=== PATIENT | male | born 1945 ===

== ENCOUNTER 2016-10-26 21:01 | Emergency (ER) | payer MEDICARE ==
[2016-10-26 21:01] VITALS: BMI 38.2
[2016-10-26 21:08] VITALS: BP 156/74; PULSE 98; RESP 14; TEMP 98; O2SAT 96
--- NOTE | 2016-10-26 21:34 | ED PDOC ---
HPI: Abdomen Time Seen by Provider: 10/26/16 21:16 Chief Complaint (Nursing): Chest Pain Chief Complaint (Provider): RUQ/Epigastric Pain History Per: Patient (71M p/w continued RUQ/epigastric pain in a diaphragmatic distribution RUQ symptoms worse with radiation into RIGHT infrascapular. Pain is constant denies alleviating symptoms but worse with lying on RIGHT side and sneezing associated with mild nausea. Otherwise denies dizziness, headaches, fevers, chills, SOB, chest pain, vomiting, loss of appetite, diarrhea, dysuria.) Past Medical History Vital Signs: Last Vital Signs Temp 36.7 C 10/26/16 21:05 Pulse 98 H 10/26/16 21:05 Resp 14 10/26/16 21:05 BP 156/74 H 10/26/16 21:05 Pulse Ox 96 10/26/16 21:57 - Medical History PMH: Diabetes, HTN, Hypercholesterolemia - Surgical History Surgical History: Hernia Repair (x3) - Family History Family History: States: Unknown Family Hx - Home Medications Home Medications: Ambulatory Orders Medication Instructions Recorded Atorvastatin [Lipitor] 20 mg PO DAILY 10/15/16 Famotidine [Pepcid] 20 mg PO Q12 #20 tab 10/15/16 Lisinopril/Hydrochlorothiazide 1 tab PO DAILY 10/15/16 [Lisinopril-Hctz 20-12.5 mg Tab] amLODIPine [Norvasc] 5 mg PO DAILY 10/15/16 metFORMIN [glucOPHAGE] 500 mg PO DAILY 10/15/16 - Allergies Allergies/Adverse Reactions: Allergies Allergy/AdvReac Type Severity Reaction Status Date / Time No Known Allergies Allergy Verified 10/26/16 21:05 Review of Systems ROS Statement: Except As Marked, All Systems Reviewed And Found Negative Gastrointestinal: Positive for: Nausea (mild not interfering with meals), Abdominal Pain (as per HPI) Physical Exam - Physical Exam Appears: Positive for: Well, Non-toxic, No Acute Distress Head Exam: Positive for: ATRAUMATIC, NORMAL INSPECTION Skin: Positive for: Normal Color, Warm Eye Exam: Positive for: Normal appearance, EOMI, PERRL ENT: Positive for: Normal ENT Inspection, Pharynx Is (clear) Neck: Positive for: Supple Cardiovascular/Chest: Positive for: Regular Rate, Rhythm. Negative for: JVD, Murmur Respiratory: Positive for: Normal Breath Sounds. Negative for: Crackles, Rales , Wheezing Gastrointestinal/Abdominal: Positive for: Bowel Sounds, Soft, Tenderness (Lynn 's +) Back: Negative for: L CVA Tenderness, R CVA Tenderness, Vertebral Tenderness Extremity: Positive for: Capillary Refill. Negative for: Pedal Edema, Calf Tenderness, Swelling Lymphatic: Negative for: Adenopathy Neurologic/Psych: Positive for: Alert, Oriented. Negative for: Motor/Sensory Deficits - ECG ECG: Positive for: Interpreted By Me ECG Rhythm: Positive for: Normal QRS, Sinus Rhythm O2 Sat by Pulse Oximetry: 96 Medical Decision Making Medical Decision MakinM persistent RUQ/epigastric pain biliary colic vs. pancreatitis vs. gastritis vs. rt pneumonia vs nephrolithiasis. - EKG - CBC - CMP - Lipase - Accucheck - Urine Dip - ABD U/S
[2016-10-26 23:55] LABS: BASO # 0.1 K/uL (0.0-0.2); BASO % 0.7 % (0.0-2.0); EOS # 0.3 K/uL (0.0-0.7); EOS % 2.5 % (0.0-4.0); LYMPH # 1.6 K/uL (1.0-4.3); LYMPH % 15.1 % (20.0-40.0); MEAN CELL VOLUME 86.3 fl (80.0-94.0); MEAN CORPUSCULAR HEMOGLOBIN 28.3 pg (27.0-31.0); MEAN CORPUSCULAR HGB CONC 32.8 g/dL (33.0-37.0); MEAN PLATELET VOLUME 7.5 fl (7.2-11.7); MONO # 1.1 K/uL (0.0-0.8); MONO % 10.3 % (0.0-10.0); NEUT # 7.7 K/uL (1.8-7.0); NEUT % 71.4 % (50.0-75.0); NRBC % 0.1 % (0.0-0.0); WHITE BLOOD COUNT 10.8 K/uL (4.8-10.8)
[2016-10-27 00:07] LABS: ALKALINE PHOSPHATASE 133 U/L (38-126); ALT/SGPT 38 U/L (21-72); AST/SGOT 32 U/L (17-59); BILIRUBIN,TOTAL 0.4 mg/dl (0.2-1.3); BLOOD UREA NITROGEN 21 mg/dl (9-20); CALCIUM 8.8 mg/dL (8.4-10.2); CARBON DIOXIDE 22 mmol/L (22-30); CHLORIDE 103 mmol/L (98-107); GFR AFRICAN-AMERICAN > 60; GLUCOSE,RANDOM 144 mg/dL (75-110); LIPASE 118 U/L (23-300); POTASSIUM 3.8 MMOL/L (3.6-5.0); SODIUM 144 mmol/l (132-148); TOTAL PROTEIN 8.9 G/DL (6.3-8.2)
--- NOTE | 2016-10-27 00:12 | US ---
EXAM: US Abdomen Limited, Right Upper Quadrant. CLINICAL HISTORY: 71 years old, male; Pain; Abdominal pain; Epigastric; Additional info: Ruq radiate to infrascapular/epigastric pain TECHNIQUE: Real-time ultrasound of the right upper quadrant with image documentation. COMPARISON: No relevant prior studies available. FINDINGS: Limitations: Body habitus. Liver: Fatty infiltration. No mass. No intrahepatic ductal dilatation. Gallbladder: No gallstones. No wall thickening. No pericholecystic fluid. No sonographic Lynn's sign. Common bile duct: No dilatation. No stones. Pancreas: Unremarkable as visualized. Right kidney: Normal echogenicity. 3.0 x 3.6 x 3.2 cm anechoic lesion with thin septation. No hydronephrosis. IMPRESSION: 1. Hepatic steatosis. 2. Probable renal cyst. 3. Incidental/non-acute findings are described above.
--- NOTE | 2016-10-27 08:02 | CARD ---
APPROVED REPORT EKG Measurement Heart [id number] <Conclusion> Normal sinus rhythm Normal ECG
== END 2016-10-27 00:23 | disposition home or self-care (01) ==
LOC: H.ER 21:01
DX: R10.13 Epigastric pain (principal); N11.0 Nonobstructive reflux-associated chronic pyelonephritis; E11.9 Type 2 diabetes mellitus without complications

== ENCOUNTER 2017-01-03 11:33 | Emergency (ER) | payer MEDICARE ==
[2017-01-03 11:34] VITALS: BMI 38.2
--- NOTE | 2017-01-03 12:09 | ED PDOC ---
HPI: General Adult Time Seen by Provider: 01/03/17 11:53 Chief Complaint (Nursing): Lower Extremity Problem/Injury History Per: Patient Additional Complaint(s): Pt. states for the past 4-5 days he's had atraumatic L foot pain and swelling. Reports pain is localized to the top and side of the foot. States he's had similar pain 1 year ago and was evaluated by a body corporate manager and prescsribed "pills " and given therapy with good relief of symptoms. Denies trauma, fever, numbness , tingling, rash. Past Medical History Reviewed: Historical Data, Nursing Documentation, Vital Signs Vital Signs: Last Vital Signs Temp 98.3 F 01/03/17 11:50 Pulse 93 H 01/03/17 11:50 Resp 18 01/03/17 11:50 BP 143/84 01/03/17 11:50 Pulse Ox 98 01/03/17 12:11 - Medical History PMH: Diabetes, Gastritis, HTN, Hypercholesterolemia - Surgical History Surgical History: Hernia Repair (x3) - Family History Family History: States: No Known Family Hx - Home Medications Home Medications: Ambulatory Orders Medication Instructions Recorded Atorvastatin [Lipitor] 20 mg PO DAILY 10/15/16 Famotidine [Pepcid] 20 mg PO Q12 #20 tab 10/15/16 Lisinopril/Hydrochlorothiazide 1 tab PO DAILY 10/15/16 [Lisinopril-Hctz 20-12.5 mg Tab] amLODIPine [Norvasc] 5 mg PO DAILY 10/15/16 metFORMIN [glucOPHAGE] 500 mg PO DAILY 10/15/16 Dicyclomine [Bentyl] 20 mg PO Q12 PRN #20 tab 10/27/16 Colchicine 0.6 mg PO Q8 #15 capsule 01/03/17 - Allergies Allergies/Adverse Reactions: Allergies Allergy/AdvReac Type Severity Reaction Status Date / Time No Known Allergies Allergy Verified 01/03/17 11:50 Review of Systems ROS Statement: Except As Marked, All Systems Reviewed And Found Negative Musculoskeletal: Positive for: Foot Pain Physical Exam - Physical Exam Appears: Positive for: Well, Non-toxic, No Acute Distress Skin: Positive for: Normal Color, Warm. Negative for: Rash Cardiovascular/Chest: Positive for: Regular Rate, Rhythm Respiratory: Positive for: CNT, Normal Breath Sounds Extremity: Positive for: Other (L foot with moderate swelling and tenderness localized to dorsum and medial surface of foot without erythema or break in skin integrity). Negative for: Calf Tenderness (b/l) Neurologic/Psych: Positive for: Alert, Oriented - Laboratory Results Result Diagrams: 01/03/17 12:23 01/03/17 12:23 - ECG O2 Sat by Pulse Oximetry: 98 - Radiology X-Ray: Interpreted by Me (L foot x-ray) X-Ray Interpretation: No Acute Disease - Progress ED Course And Treament: Labs ordered. IV line established. Foot x-ray ordered. Pt. evaluated by podiatry who discussed case with Dr. Hurd and recommends colchicine x 5 days. Disposition - Clinical Impression Clinical Impression: Gout - Patient ED Disposition Is Patient to be Admitted: No - Disposition Referrals: Dada Shepard MD [Primary Care Provider] - Podiatry Clinic [Outside] Disposition: Routine/Home Disposition Time: 15:44 Condition: STABLE Prescriptions: Colchicine 0.6 mg PO Q8 #15 capsule Instructions: Gout (ED)
[2017-01-03 12:34] LABS: BASO # 0.1 K/uL (0.0-0.2); BASO % 0.7 % (0.0-2.0); EOS # 0.3 K/uL (0.0-0.7); EOS % 2.9 % (0.0-4.0); HEMATOCRIT 43.6 % (35.0-51.0); LYMPH # 1.6 K/uL (1.0-4.3); LYMPH % 14.6 % (20.0-40.0); MEAN CELL VOLUME 84.2 fl (80.0-94.0); MEAN CORPUSCULAR HEMOGLOBIN 28.5 pg (27.0-31.0); MEAN CORPUSCULAR HGB CONC 33.8 g/dL (33.0-37.0); MEAN PLATELET VOLUME 7.2 fl (7.2-11.7); MONO % 9.2 % (0.0-10.0); NEUT # 8.1 K/uL (1.8-7.0); NEUT % 72.6 % (50.0-75.0); NRBC % 0.3 % (0.0-0.0); RED CELL DISTRIBUTION WIDTH 14.4 % (11.5-14.5); WHITE BLOOD COUNT 11.2 K/uL (4.8-10.8)
[2017-01-03 12:42] LABS: ALB/GLOB RATIO 0.9 (1.0-2.1); ALKALINE PHOSPHATASE 141 U/L (38-126); ALT/SGPT 21 U/L (21-72); AST/SGOT 38 U/L (17-59); BILIRUBIN,TOTAL 1.4 mg/dl (0.2-1.3); BLOOD UREA NITROGEN 20 mg/dl (9-20); CALCIUM 9.3 mg/dL (8.4-10.2); CARBON DIOXIDE 24 mmol/L (22-30); CHLORIDE 101 mmol/L (98-107); GFR AFRICAN-AMERICAN > 60; SODIUM 140 mmol/l (132-148); TOTAL PROTEIN 10.3 G/DL (6.3-8.2); URIC ACID 9.9 mg/Dl (3.5-8.5)
[2017-01-03 12:43] LABS: GLUCOSE,RANDOM 145 mg/dL (75-110); POTASSIUM 5.2 MMOL/L (3.6-5.0)
--- NOTE | 2017-01-03 15:21 | RAD ---
PROCEDURE: Left Foot Radiographs. HISTORY: pain COMPARISON: Comparison made with prior radiographs left foot 11/20/2008. FINDINGS: BONES: . No definitive radiographic evidence of acute displaced fracture nor dislocation. JOINTS: Mild hallux valgus deformity with overgrowth of the head of the 1st overlying medial metatarsal and mild DJD 1st MTP joint. There is also prominence of the overlying medial soft tissues at the level of the head of the metatarsal and 1st MTP joint. Small osteophytes is seen arising from the posterior aspect of the base of the 5th metatarsal. Prominent posterior and smaller plantar calcaneal surface enthesophyte. Degenerative changes dorsal bones of the midfoot. There does appear to be mild diffuse circumferential soft tissue swelling SOFT TISSUES: . As above. OTHER FINDINGS: None. IMPRESSION: No acute fractures. Mild diffuse circumferential soft tissue swelling. See above discussion for additional findings and details.
[2017-01-03 15:44] VITALS: BP 141/81; PULSE 20; RESP 22; TEMP 98.1
[2017-01-03 15:45] VITALS: O2SAT 98
--- NOTE | 2017-01-03 15:45 | CP.PCM.CON ---
History of Present Illness - History of Present Illness History of Present Illness: PODIATRY CONSULT NOTE 71 year old male patient seen concerning complaints of left foot painful swelling. Pain has persisted for past 5 days absent any inciting event or trauma. Pt grades pain a "6/10" localized to the left foot. Pt has history of similar presentation to the right foot 1 year prior which resolved with treatment of undisclosed oral medication. Denies trauma, fever, numbness, tingling, rash. Pt reports no major diet changes, and denies consumption of red meat. Pt denies recent f/c/cp/sob/n/v. PMD: Dr. Nielsen @ [facility] PMH: HTN, DM2, Hypercholesterolemia. PSH ALL: NKDA Meds: Metformin, Amlodipine, Famotidine, Lipitor, Lisinipril Social Hx: Homes, unemployed, Denies tobacco use, alcohol abuse, and illicit drug use. Past Patient History - Past Social History Smoking Status: Never Smoked - CARDIAC Hx Hypercholesterolemia: Yes Hx Hypertension: Yes - ENDOCRINE/METABOLIC Hx Diabetes Mellitus Type 2: Yes - GASTROINTESTINAL Hx Gastritis: Yes - PSYCHIATRIC Hx Substance Use: No - SURGICAL HISTORY Hx Herniorrhaphy: Yes Other/Comment: Hernia surgery x 2 1984, 1989 - ANESTHESIA Hx Anesthesia: Yes Hx Anesthesia Reactions: No Hx Malignant Hyperthermia: No Meds Home Medications: Home Medication List Medication Instructions Recorded Confirmed Type Colchicine 0.6 mg PO Q8 #15 capsule 01/03/17 Rx Allergies/Adverse Reactions: Allergies Allergy/AdvReac Type Severity Reaction Status Date / Time No Known Allergies Allergy Verified 01/03/17 11:50 Physical Exam - Constitutional Appears: Well, Non-toxic, No Acute Distress - Extremities Exam Additional comments: Largely Wheel chair assisted. Right leg focused. VASC: DP and PT pulses are weakly palpable, graded 1/4. Negative calf tenderness on compression. Moderate non-pitting edema noted at level of midfoot joint, with accompanying moderate callor and mild rubor. Temperature runs warm to cool proximal to distal. DERM: No noted ecchymosis at this time. No open wounds, lesion, or macerations noted. No hyper-keratotic lesion. Nails are thickened, discolored, and dystrophic. NEURO: Protective sensation and epicritic sensation grossly intact. MUSK: Tender limited midfoot inversion and eversion ROM, limitation moderate secondary to guarding and swelling. Tenderness on palpation along dorsal midfoot extending from 1st metatarsal shaft to lateral calcaneal cuboid joint. Pedal muscle strength is graded 5/5 in all 4 major pedal muscle groups. No gross deformities noted. - Neurological Exam Neurological exam: Alert, Oriented x3 - Psychiatric Exam Psychiatric exam: Normal Affect, Normal Mood Results - Vital Signs Recent Vital Signs: Last Vital Signs Temp 98.3 F 01/03/17 11:50 Pulse 93 H 01/03/17 11:50 Resp 18 01/03/17 11:50 BP 143/84 01/03/17 11:50 Pulse Ox 98 01/03/17 12:11 - Labs Result Diagrams: 01/03/17 12:23 01/03/17 12:23 Labs: Laboratory Results - last 24 hr 01/03/17 01/03/17 12:23 12:23 WBC 11.2 H RBC 5.18 Hgb 14.7 Hct 43.6 MCV 84.2 D MCH 28.5 MCHC 33.8 RDW 14.4 Plt Count 376 MPV 7.2 Neut % (Auto) 72.6 Lymph % (Auto) 14.6 L [place] % (Auto) 9.2 Eos % (Auto) 2.9 Baso % (Auto) 0.7 Neut # 8.1 H Lymph # 1.6 [place] # 1.0 H Eos # 0.3 Baso # 0.1 ESR 54 H Sodium 140 Potassium 5.2 H Chloride 101 Carbon Dioxide 24 Anion Gap 20 BUN 20 Creatinine 1.1 Est GFR ( Amer) > 60 Est GFR (Non-Af Amer) > 60 Random Glucose 145 H Uric Acid 9.9 H Calcium 9.3 Total Bilirubin 1.4 H AST 38 ALT 21 D Alkaline Phosphatase 141 H Total Protein 10.3 H Albumin 4.9 Globulin 5.4 H Albumin/Globulin Ratio 0.9 L Assessment & Plan - Assessment and Plan (Free Text) Assessment: 71 year old male with acute on chronic gouty attack. Mild primary left foot osteoarthritis Plan: Pt seen and evaluated. Chart, labs, and vitals reviewed. Leukocytosis. Serum Uric Acid level=9.9. Discussed in detail with attending Dr. Hurd, who endorsed the following plan. Radiographs reviewed, results shows mild midfoot arthritis. Prescribed 5 day regimen of Colchicine 0.6 mg PO TID. RICE therapy. Weightbearing as tolerated to left foot. Return to ER should symptoms worsen. Follow-up in [facility] podiatry clinic within 10 days. - Date & Time Date: 01/03/17 Time: 15:35
== END 2017-01-03 16:14 | disposition home or self-care (01) ==
LOC: H.ER 11:33
DX: M10.9 Gout, unspecified (principal); M79.672 Pain in left foot; E11.9 Type 2 diabetes mellitus without complications; I10 Essential (primary) hypertension; E78.00 Pure hypercholesterolemia, unspecified; K29.70 Gastritis, unspecified, without bleeding; Z79.84 Long term (current) use of oral hypoglycemic drugs; M19.072 Primary osteoarthritis, left ankle and foot; D72.829 Elevated white blood cell count, unspecified

== ENCOUNTER 2017-11-12 21:06 | Inpatient (IN) | payer MEDICARE ==
[2017-11-12 21:06] VITALS: BMI 38.2
--- NOTE | 2017-11-12 23:38 | ED PDOC ---
HPI: Abdomen Time Seen by Provider: 11/12/17 23:00 Chief Complaint (Nursing): Abdominal Pain History Per: Patient History/Exam Limitations: no limitations Onset/Duration Of Symptoms: Days Current Symptoms Are (Timing): Still Present Location Of Pain/Discomfort: Epigastric Exacerbating Factors: Food Additional Complaint(s): HX of DM, HTN, HLD p/w hiccuping since yesterda, states he ate 4 pieces of "Bad meat" yesterday and since has had 4 episodes of diarrhea and epigastric pain radiating to throat. States he is most bothered by hiccups which are keeping him up at night. Denies nausea, vomiting, fevers. Due for colonoscopy with Dr. Gutierres early December. Past Medical History Reviewed: Historical Data, Nursing Documentation, Vital Signs Vital Signs: Last Vital Signs Temp 98.1 F 11/12/17 21:21 Pulse 112 H 11/12/17 23:54 Resp 17 11/12/17 23:54 BP 144/73 11/12/17 23:54 Pulse Ox 96 11/13/17 04:37 - Medical History PMH: Diabetes, Gastritis, HTN, Hypercholesterolemia Denies: Chronic Kidney Disease - Surgical History Surgical History: Hernia Repair (x3) - Family History Family History: States: Unknown Family Hx - Home Medications Home Medications: Ambulatory Orders Medication Instructions Recorded Atorvastatin [Lipitor] 20 mg PO DAILY 10/15/16 Famotidine [Pepcid] 20 mg PO Q12 #20 tab 10/15/16 Lisinopril/Hydrochlorothiazide 1 tab PO DAILY 10/15/16 [Lisinopril-Hctz 20-12.5 mg Tab] amLODIPine [Norvasc] 5 mg PO DAILY 10/15/16 metFORMIN [glucOPHAGE] 500 mg PO DAILY 10/15/16 Dicyclomine [Bentyl] 20 mg PO Q12 PRN #20 tab 10/27/16 Colchicine 0.6 mg PO Q8 #15 capsule 01/03/17 - Allergies Allergies/Adverse Reactions: Allergies Allergy/AdvReac Type Severity Reaction Status Date / Time No Known Allergies Allergy Verified 01/03/17 11:50 Review of Systems ROS Statement: Except As Marked, All Systems Reviewed And Found Negative Gastrointestinal: Positive for: Abdominal Pain, Diarrhea Physical Exam - Reviewed Nursing Documentation Reviewed: Yes Vital Signs Reviewed: Yes - Physical Exam Appears: Positive for: Well (obese), Non-toxic, No Acute Distress Head Exam: Positive for: ATRAUMATIC, NORMAL INSPECTION, NORMOCEPHALIC Skin: Positive for: Normal Color, Warm, DRY Eye Exam: Positive for: EOMI, Normal appearance, PERRL ENT: Positive for: Normal ENT Inspection Neck: Positive for: Normal, Painless ROM Cardiovascular/Chest: Positive for: Regular Rate, Rhythm Respiratory: Positive for: CNT, Normal Breath Sounds Gastrointestinal/Abdominal: Positive for: Normal Exam, Bowel Sounds, Soft. Negative for: Tenderness, Organomegaly, Guarding, Rebound Back: Positive for: Normal Inspection Extremity: Positive for: Normal ROM Neurologic/Psych: Positive for: Alert, auto brake mechanic II-XII, Oriented. Negative for: Motor/Sensory Deficits - Laboratory Results Result Diagrams: 11/13/17 00:06 11/13/17 03:25 - ECG ECG Rhythm: Positive for: Normal QRS, Sinus Tachycardia O2 Sat by Pulse Oximetry: 96 Pulse Ox Interpretation: Normal Medical Decision Making Medical Decision MakinPM A/P: Hx of DM, HTN, HLD p/w hiccuping and epigastric pain -likely symptoms are GI related, however given risk factors will check labs to r /o cardiac involvement -will get CXR to eval cardiac silhouette for enlargement -will attempt vagal maneuvers with breath-holding and cold water prior to meds -tachycardia likely 2/2 to discomfort -will re-eval 4AM Patient states his burping has gone from constant to intermittent. Will employ breath-holding maneuver and benadryl. Pending dissection study- Cr has gone down after fluids, will continue to hydrate to protect kidneys. Will give benadryl for refractory hiccups 630AM EXAM: CT Angiography Chest With Intravenous Contrast CT Angiography Abdomen and Pelvis With Intravenous Contrast EXAM DATE/TIME: 11/13/2017 4:32 AM CLINICAL HISTORY: 72 years old, male; Pain; Abdominal pain; Epigastric; Chest pain; Additional info: Epig pain, R/O dissection TECHNIQUE: Axial computed tomographic angiography images of the chest, abdomen and pelvis with intravenous contrast using CT angiography protocol. All CT scans at this facility use one or more dose reduction techniques, viz.: automated exposure control; ma/kV adjustment per patient size (including targeted exams where dose is matched to indication; i.e. head); or iterative reconstruction technique. All CT scans at this facility use one or more dose reduction techniques, viz.: automated exposure control; ma/kV adjustment per patient size (including targeted exams where dose is matched to indication; i.e. head); or iterative reconstruction technique. MIP reconstructed images were created and reviewed. Coronal and sagittal reformatted images were created and reviewed. CONTRAST: 95 mL of [id number] administered intravenously. COMPARISON: Recent chest radiographs. FINDINGS: VASCULATURE: AORTA: No evidence of aortic dissection or aneurysm. PULMONARY ARTERIES: Contrast opacification of the pulmonary arteries is adequate , and there are no filling defects seen to suggest pulmonary embolism. GREAT VESSELS OF AORTIC ARCH: No evidence of occlusion or significant stenosis. CELIAC TRUNK AND MESENTERIC ARTERIES: No occlusion or significant stenosis. RENAL ARTERIES: No evidence of occlusion or significant stenosis. ILIAC ARTERIES: No evidence of occlusion or significant stenosis. NYA GARCIA | Final Radiology Report Page 2 of 3 CHEST: LUNGS: Subtle, patchy areas of groundglass density in the lingula and right middle lobe, suspicious for subtle, bilateral groundglass consolidation. No evidence of diffuse pulmonary vascular congestion. PLEURAL SPACE: No pneumothorax or pleural effusions seen. HEART: No evidence of significant pericardial effusion. MEDIASTINUM: Mild, diffuse esophageal wall thickening. The mid and distal esophagus appear fluid filled and mildly dilated. Findings could be secondary to mild esophagitis. Small hiatal hernia. No CT evidence of esophageal perforation. ABDOMEN: LIVER: Fatty infiltration of the liver. GALLBLADDER AND BILE DUCTS: No evidence of acute cholecystitis. PANCREAS: No evidence of acute pancreatitis. SPLEEN: No acute abnormality of the spleen identified. ADRENALS: No acute abnormality of the adrenal glands identified. KIDNEYS AND URETERS: Low density lesion in the right kidney, most likely a cyst. This measures 4.3 cm No evidence of hydroureteronephrosis. STOMACH AND BOWEL: Colonic diverticulosis, with no evidence of acute diverticulitis. Otherwise, no significant abnormality of the bowel seen. No evidence of bowel obstruction. . APPENDIX: Appendix is seen, and is within normal limits in appearance. PELVIS: BLADDER: No acute abnormality of the bladder identified. Negative. REPRODUCTIVE: Enlarged prostate gland, which indents the base of the bladder. CHEST, ABDOMEN and PELVIS: INTRAPERITONEAL SPACE: No evidence of free fluid or free air. BONES/JOINTS: No acute bony abnormality identified. SOFT TISSUES: 3.9 cm fluid density, round masslike area is seen in the left inguinal canal superiorly. Most likely, this represents a small lymphocele, possibly related to previous left inguinal hernia repair. Recommend clinical correlation. Bilateral gynecomastia. LYMPH NODES: No evidence of diffuse lymphadenopathy. IMPRESSION: - Findings suspicious for subtle groundglass consolidation in the right middle lobe and lingula. In an acute setting, the findings are suspicious for subtle, bilateral groundglass infiltrates. - Esophageal findings which could be secondary to mild esophagitis, such as reflux esophagitis. - Otherwise, no evidence of significant acute process. No evidence of aortic dissection. - Probable lymphocele in the left inguinal canal superiorly. - See above for remaining findings. Thank you for allowing us to participate in the care of your patient. Dictated and Authenticated by: Freda Sher MD RIVERA, WILFREDO | Final Radiology Report CONFIDENTIALITY STATEMENT This report is intended only for use by the referring physician, and only in accordance with law. If you received this in error, call [phone]. Page 3 of 3 11/13/2017 6:27 AM Eastern Time ([place] & [place]) PAtient does not have dissection, however has evidence of bilateral PNA. Given age and RF's, will admit for CAP treatment with IV Abx and also trend troponins , cardiac monitoring. Will admit to FP service. Disposition - Clinical Impression Clinical Impression: Bilateral pneumonia - Disposition Disposition Time: 06:30 Condition: SERIOUS Forms: [employer] (Slovak)
[2017-11-13 00:10] LABS: BASO # 0.1 K/uL (0.0-0.2); BASO % 0.6 % (0.0-2.0); EOS % 0.2 % (0.0-4.0); HEMOGLOBIN 14.4 g/dL (12.0-18.0); LYMPH # 0.6 K/uL (1.0-4.3); LYMPH % 3.6 % (20.0-40.0); MEAN CELL VOLUME 86.2 fl (80.0-94.0); MEAN CORPUSCULAR HEMOGLOBIN 28.9 pg (27.0-31.0); MEAN CORPUSCULAR HGB CONC 33.5 g/dL (33.0-37.0); MONO # 1.2 K/uL (0.0-0.8); MONO % 6.8 % (0.0-10.0); NEUT # 15.9 K/uL (1.8-7.0); NEUT % 88.8 % (50.0-75.0); NRBC % 0.1 % (0.0-0.0); PLATELET COUNT 372 K/uL (130-400); RED CELL DISTRIBUTION WIDTH 15.2 % (11.5-14.5); WHITE BLOOD COUNT 17.9 K/uL (4.8-10.8)
[2017-11-13 00:23] LABS: CALCIUM 8.6 mg/dL (8.4-10.2)
[2017-11-13 00:39] LABS: ALB/GLOB RATIO 0.9 (1.0-2.1); ALBUMIN 4.7 g/dL (3.5-5.0); TROPONIN I 0.02 ng/mL (0.00-0.120)
[2017-11-13 00:45] LABS: INR 1.1 (0.9-1.2); PROTHROMBIN TIME 12.6 Seconds (9.8-13.1)
[2017-11-13 00:46] LABS: PARTIAL THROMBOPLASTIN TIME 35.3 Seconds (25.6-37.1)
[2017-11-13] MEDS ORDERED: Sodium Chloride 0.9% 1,000 ML IV STA ×2 (00:49→04:36)
[2017-11-13 03:10] LABS: BANDS 2 % (0-2); EOSINOPHIL 2 % (0-7); LYMPHOCYTE 10 % (20-50); MONOCYTE 3 % (0-10); NEUTROPHIL 81 % (42-75); PLATELET ESTIMATE NORMAL (NORMAL); REACTIVE LYMPHOCYTES 2 % (0-0); TOTAL CELLS COUNTED 100
[2017-11-13 03:12] LABS: ANISOCYTOSIS SLIGHT; HYPOCHROMIC SLIGHT; TEARDROP CELLS SLIGHT
[2017-11-13 03:42] LABS: VENOUS BLOOD GAS PCO2 32 mmHg (40-60); VENOUS BLOOD GAS PO2 47 mm/Hg (30-55); VENOUS BLOOD PH 7.31 (7.32-7.43)
[2017-11-13 03:44] LABS: CALCIUM 8.5 mg/dL (8.4-10.2)
[2017-11-13] MEDS ORDERED: Sodium Chloride 0.9% 1,000 ML IV SCH (04:45)
[2017-11-13] MEDS ORDERED: Iodixanol 320 MG/ML 100 ML BOTTLE IV ONE (04:48)
[2017-11-13] MEDS ORDERED: DiphenhydrAMINE 50 mg/ml Inj IVP STA (05:24)
[2017-11-13] MEDS ORDERED: DiphenhydrAMINE 50 mg/ml Inj ONE (06:16)
--- NOTE | 2017-11-13 06:27 | CT ---
EXAM: CT Angiography Chest With Intravenous Contrast CT Angiography Abdomen and Pelvis With Intravenous Contrast EXAM DATE/TIME: 11/13/2017 4:32 AM CLINICAL HISTORY: 72 years old, male; Pain; Abdominal pain; Epigastric; Chest pain; Additional info: Epig pain, R/O dissection TECHNIQUE: Axial computed tomographic angiography images of the chest, abdomen and pelvis with intravenous contrast using CT angiography protocol. All CT scans at this facility use one or more dose reduction techniques, viz.: automated exposure control; ma/kV adjustment per patient size (including targeted exams where dose is matched to indication; i.e. head); or iterative reconstruction technique. All CT scans at this facility use one or more dose reduction techniques, viz.: automated exposure control; ma/kV adjustment per patient size (including targeted exams where dose is matched to indication; i.e. head); or iterative reconstruction technique. MIP reconstructed images were created and reviewed. Coronal and sagittal reformatted images were created and reviewed. CONTRAST: 95 mL of administered intravenously. COMPARISON: Recent chest radiographs. FINDINGS: VASCULATURE: AORTA: No evidence of aortic dissection or aneurysm. PULMONARY ARTERIES: Contrast opacification of the pulmonary arteries is adequate, and there are no filling defects seen to suggest pulmonary embolism. GREAT VESSELS OF AORTIC ARCH: No evidence of occlusion or significant stenosis. CELIAC TRUNK AND MESENTERIC ARTERIES: No occlusion or significant stenosis. RENAL ARTERIES: No evidence of occlusion or significant stenosis. ILIAC ARTERIES: No evidence of occlusion or significant stenosis. CHEST: LUNGS: Subtle, patchy areas of groundglass density in the lingula and right middle lobe, suspicious for subtle, bilateral groundglass consolidation. No evidence of diffuse pulmonary vascular congestion. PLEURAL SPACE: No pneumothorax or pleural effusions seen. HEART: No evidence of significant pericardial effusion. MEDIASTINUM: Mild, diffuse esophageal wall thickening. The mid and distal esophagus appear fluid filled and mildly dilated. Findings could be secondary to mild esophagitis. Small hiatal hernia. No CT evidence of esophageal perforation. ABDOMEN: LIVER: Fatty infiltration of the liver. GALLBLADDER AND BILE DUCTS: No evidence of acute cholecystitis. PANCREAS: No evidence of acute pancreatitis. SPLEEN: No acute abnormality of the spleen identified. ADRENALS: No acute abnormality of the adrenal glands identified. KIDNEYS AND URETERS: Low density lesion in the right kidney, most likely a cyst. This measures 4.3 cm No evidence of hydroureteronephrosis. STOMACH AND BOWEL: Colonic diverticulosis, with no evidence of acute diverticulitis. Otherwise, no significant abnormality of the bowel seen. No evidence of bowel obstruction. . APPENDIX: Appendix is seen, and is within normal limits in appearance. PELVIS: BLADDER: No acute abnormality of the bladder identified. Negative. REPRODUCTIVE: Enlarged prostate gland, which indents the base of the bladder. CHEST, ABDOMEN and PELVIS: INTRAPERITONEAL SPACE: No evidence of free fluid or free air. BONES/JOINTS: No acute bony abnormality identified. SOFT TISSUES: 3.9 cm fluid density, round masslike area is seen in the left inguinal canal superiorly. Most likely, this represents a small lymphocele, possibly related to previous left inguinal hernia repair. Recommend clinical correlation. Bilateral gynecomastia. LYMPH NODES: No evidence of diffuse lymphadenopathy. IMPRESSION: - Findings suspicious for subtle groundglass consolidation in the right middle lobe and lingula. In an acute setting, the findings are suspicious for subtle, bilateral groundglass infiltrates. - Esophageal findings which could be secondary to mild esophagitis, such as reflux esophagitis. - Otherwise, no evidence of significant acute process. No evidence of aortic dissection. - Probable lymphocele in the left inguinal canal superiorly. - See above for remaining findings.
[2017-11-13] MEDS ORDERED: Azithromycin 500 MG in Sodium Chloride 0.9% 250 ML IVPB STA (06:41)
[2017-11-13] MEDS ORDERED: Dextrose 50% SYRINGE Inj (50 ml) IV PRN (08:35)
[2017-11-13] MEDS ORDERED: Glucagon Recombinant 1 mg Inj IM PRN (08:35)
--- NOTE | 2017-11-13 08:47 | CP.PCM.HP ---
<Олег Richard - Last Filed: 11/13/17 16:09> History of Present Illness - History of Present Illness History of Present Illness: 72 yo M pmhx of dm, htn, hld, gout presents to the ED with complaints of hiccups lasting 2 days. Report cough for the past 2-3 weeks, occasionally productive of clear sputum. Denies N/V/CP/SOB, recent travel, or living with sick contacts. Reports epigastric discomfort rated 5/10 radiating to back. Pain is described as "like arthritis". Pain is intermittent lasting a few seconds. He reports eating at a restaurant 2 days prior and quckly experienced diarrhea 8 times after. Last bowel movement was 6 pm last night soft stools. Tolerates PO diet. PMD: NHX Last seen by Dr. Vega on 08/31/2017 Next of kin: Niece: Toyin [phone] pmhx of dm, htn, hld, gout psurghx: bilateral inguinal hernia repair 1984 and soc: denies: smoking, alcohol, illict drugs rx: metformin, omeprazole, asa, atorvastatin, allopurinol, lisinopril NKDA ED course: -Vitals: 98.1F, 119 bpm, 171-95, rr:18, 96% ra -EKG: sinus tachycardia -CXR: pending final read -ct dissection: no dissection of aorta; subtle groundglass consolidation oin R middle lobe and lingula. subtle bl groundglass infiltrates. possible mild esophagitis. -admit to tele -Rx: Benadryl 25 mg ivp; famotidine 20 mg ivp; reglan 10 mg ivp, -fluid: NS: 1L bolus, 1L at 250 mls/hr -abx: CAP: Ceftriaxone 2 gm IVP; azithromycin 500 mg IVPB -troponin: neg x1 -lipase: 72 Present on Admission - Present on Admission Any Indicators Present on Admission: Yes History of Uncontrolled Diabetes: Yes Review of Systems - Constitutional Constitutional: As Per HPI - Cardiovascular Cardiovascular: absent: Chest Pain - Respiratory Respiratory: As Per HPI, Cough, Chest Congestion - Gastrointestinal Gastrointestinal: Abdominal Pain (epigastric), Diarrhea - Musculoskeletal Musculoskeletal: Abnormal Gait - Neurological Neurological: Abnormal Gait (BL knee pain for 25 yrs) Past Patient History - Past Medical History & Family History Past Medical History?: Yes - Past Social History Smoking Status: Never Smoked Alcohol: None Drugs: Denies - CARDIAC Hx Hypercholesterolemia: Yes Hx Hypertension: Yes - PULMONARY Hx Respiratory Disorders: No - NEUROLOGICAL Hx Neurological Disorder: No - HEENT Hx HEENT Problems: No - RENAL Hx Chronic Kidney Disease: No - ENDOCRINE/METABOLIC Hx Diabetes Mellitus Type 2: Yes - HEMATOLOGICAL/ONCOLOGICAL Hx Blood Disorders: No - INTEGUMENTARY Hx Dermatological Problems: No - MUSCULOSKELETAL/RHEUMATOLOGICAL Hx Musculoskeletal Disorders: No Hx Gout: Yes Hx Unsteady Gait: Yes (bl knee pain) - GASTROINTESTINAL Hx Gastritis: Yes - GENITOURINARY/GYNECOLOGICAL Hx Genitourinary Disorders: No - PSYCHIATRIC Hx Psychophysiologic Disorder: No Hx Substance Use: No - SURGICAL HISTORY Hx Herniorrhaphy: Yes (BL) Other/Comment: Hernia surgery x 2 1984, 1989 - ANESTHESIA Hx Anesthesia: Yes Hx Anesthesia Reactions: No Hx Malignant Hyperthermia: No Meds Allergies/Adverse Reactions: Allergies Allergy/AdvReac Type Severity Reaction Status Date / Time No Known Allergies Allergy Verified 01/03/17 11:50 Physical Exam - Constitutional Appears: Well, No Acute Distress - Eye Exam Eye Exam: EOMI - Neck Exam Neck exam: Positive for: Full Rom - Respiratory Exam Respiratory Exam: Decreased Breath Sounds (At R lower lung base; clear on L). absent: Wheezes, Respiratory Distress - Cardiovascular Exam Cardiovascular Exam: REGULAR RHYTHM, +S1, +S2 - GI/Abdominal Exam GI & Abdominal Exam: Normal Bowel Sounds, Soft. absent: Tenderness - Extremities Exam Extremities exam: Negative for: calf tenderness - Neurological Exam Neurological exam: Abnormal Gait, Alert, CN II-XII Intact, Oriented x3 - Psychiatric Exam Psychiatric exam: Normal Affect, Normal Mood Results - Vital Signs Recent Vital Signs: Last Vital Signs Temp 98.1 F 11/12/17 21:21 Pulse 112 H 11/12/17 23:54 Resp 17 11/12/17 23:54 BP 144/73 11/12/17 23:54 Pulse Ox 96 11/13/17 06:49 - Labs Result Diagrams: 11/13/17 00:06 11/13/17 03:25 Labs: Laboratory Results - last 24 hr 11/13/17 11/13/17 11/13/17 00:06 00:06 00:06 WBC 17.9 H D RBC 5.00 Hgb 14.4 Hct 43.1 MCV 86.2 MCH 28.9 MCHC 33.5 RDW 15.2 H Plt Count 372 MPV 8.0 Neut % (Auto) 88.8 H Lymph % (Auto) 3.6 L Leon % (Auto) 6.8 Eos % (Auto) 0.2 Baso % (Auto) 0.6 Neut # (Auto) 15.9 H Lymph # (Auto) 0.6 L Leon # (Auto) 1.2 H Eos # (Auto) 0.0 Baso # (Auto) 0.1 Neutrophils % (Manual) 81 H Band Neutrophils % 2 Lymphocytes % (Manual) 10 L Reactive Lymphs % 2 H Monocytes % (Manual) 3 Eosinophils % (Manual) 2 Platelet Estimate Normal Hypochromasia (manual) Slight Anisocytosis (manual) Slight Tear Drop Cells Slight PT 12.6 INR 1.1 APTT 35.3 pO2 VBG pH VBG pCO2 VBG HCO3 VBG Total CO2 VBG O2 Sat (Calc) VBG Base Excess VBG Potassium Glucose Lactate FiO2 Sodium 140 Potassium 5.5 H Chloride 104 Carbon Dioxide 15 L Anion Gap 27 H BUN 35 H Creatinine 1.7 H Est GFR ( Amer) 48 Est GFR (Non-Af Amer) 40 Random Glucose 210 H Calcium 8.6 Total Bilirubin 1.3 AST 70 H ALT 41 Alkaline Phosphatase 139 H Troponin I 0.0200 Total Protein 9.7 H Albumin 4.7 Globulin 5.0 H Albumin/Globulin Ratio 0.9 L Lipase 72 Venous Blood Potassium Blood Type Antibody Screen BBK History Checked 11/13/17 11/13/17 11/13/17 03:25 03:25 03:39 WBC RBC Hgb Hct MCV MCH MCHC RDW Plt Count MPV Neut % (Auto) Lymph % (Auto) Leon % (Auto) Eos % (Auto) Baso % (Auto) Neut # (Auto) Lymph # (Auto) Leon # (Auto) Eos # (Auto) Baso # (Auto) Neutrophils % (Manual) Band Neutrophils % Lymphocytes % (Manual) Reactive Lymphs % Monocytes % (Manual) Eosinophils % (Manual) Platelet Estimate Hypochromasia (manual) Anisocytosis (manual) Tear Drop Cells PT INR APTT pO2 47 VBG pH 7.31 L VBG pCO2 32 L VBG HCO3 17.4 VBG Total CO2 17.1 L VBG O2 Sat (Calc) 85.2 H VBG Base Excess -9.0 L VBG Potassium 4.0 Glucose 247 H Lactate 1.8 FiO2 21.0 Sodium 140 136.0 Potassium 4.1 Chloride 107 109.0 H Carbon Dioxide 14 L Anion Gap 23 H BUN 34 H Creatinine 1.5 Est GFR ( Amer) 55 Est GFR (Non-Af Amer) 46 Random Glucose 224 H Calcium 8.5 Total Bilirubin AST ALT Alkaline Phosphatase Troponin I Total Protein Albumin Globulin Albumin/Globulin Ratio Lipase Venous Blood Potassium 4.0 Blood Type O POSITIVE Antibody Screen Negative BBK History Checked No verified bt Assessment & Plan - Assessment and Plan (Free Text) Plan: 72 yo M pmhx of dm, htn, hld, gout presents to the ED with complaints of hiccups lasting 2 days. On further examination, he was found with possible bilateral lower lobe pneumonia Community Acquired Pneumonia - ct dissection: no dissection of aorta; subtle groundglass consolidation on R middle lobe and lingula. subtle bl groundglass infiltrates. possible mild esophagitis. -Admit to tele -wbc 17.9 -Continue: Ceftriaxone 2 gm IVP; azithromycin 500 mg IVPB -ID Dr. Barrientos consulted: recommendations appreciated -monitor vitals Diabetes Mellitus -Accucheck ACHS -Medium correction scale -Continue home med: Metformin 500 mg -f/u hba1c, cmp, lipid panel Hypertension -troponin neg x1 - Continue home meds: Lisinopril 20mg; Amlodipine 10 mg -Monitor vitals Tachycardia -resolved -monitor vitals Reflux esophagitis - ct dissection: no dissection of aorta; subtle groundglass consolidation on R middle lobe and lingula. subtle bl groundglass infiltrates. possible mild esophagitis. - Famotididine 20 mg - monitor symptoms DVT prophylaxis -Lovenox 40 mg SQ -Encourage ambulating as tolerated -scd <Daily Abdi - Last Filed: 11/14/17 09:48> Results - Vital Signs Recent Vital Signs: Last Vital Signs Temp 98.3 F 11/14/17 08:21 Pulse 76 11/14/17 09:13 Resp 20 11/14/17 08:21 BP 114/66 11/14/17 09:13 Pulse Ox 96 11/14/17 08:21 - Labs Result Diagrams: 11/13/17 00:06 11/13/17 03:25 Labs: Laboratory Results - last 24 hr 11/13/17 11/13/17 11/13/17 10:29 13:00 16:17 POC Glucose (mg/dL) 201 H 138 H Triglycerides Cholesterol LDL Cholesterol Direct HDL Cholesterol Blood Type Confirm O POSITIVE 11/13/17 11/14/17 11/14/17 20:56 05:30 06:25 POC Glucose (mg/dL) 194 H 153 H Triglycerides 102 Cholesterol 88 LDL Cholesterol Direct 41 HDL Cholesterol 18 L Blood Type Confirm Attending/Attestation - Attestation I have personally seen and examined this patient.: Yes I have fully participated in the care of the patient.: Yes I have reviewed all pertinent clinical information: Yes Notes (Text): 11/14/17 09:47 ATTENDING NOTE ATTESTATION PATIENT SEEN AND EXAMINED. CASE DISCUSSED WITH RESIDENT. AGREE WITH FINDINGS AND PLAN.
[2017-11-13] MEDS ORDERED: cefTRIAXone 2 GM in Sodium Chloride 0.9% 100 ML IVPB SCH (09:00)
--- NOTE | 2017-11-13 09:50 | RAD ---
HISTORY: COMPARISON: 09/27/2013. TECHNIQUE: Chest PA and lateral FINDINGS: LINES AND TUBES: None. LUNG AND PLEURA: The lungs are well inflated and clear. HEART AND MEDIASTINUM: The heart is not enlarged. The hilar and mediastinal contours are within normal limits. SKELETAL STRUCTURES: The bony structures are within normal limits for the patient's age. VISUALIZED UPPER ABDOMEN: Normal. OTHER FINDINGS: None. IMPRESSION: No active pulmonary disease.
[2017-11-13] MEDS ORDERED: cefTRIAXone 1 GM in Sodium Chloride 0.9% 100 ML IVPB SCH (11:52)
--- NOTE | 2017-11-13 14:14 | CP.PCM.CON ---
History of Present Illness - History of Present Illness History of Present Illness: Infectious Disease Consultation Note- asked to see this patient at the request of family practice team for ? pneumonia. HPI- Patient is a 72 y/o male with PMH of HTN, DM II, who states 2 days ago after eating meal he developed hiccups persistent along with midepigastric abd pain and cough. he denies ay sob and states the cough is not too bad and no phlegm. he states the hiccups are not constant but come and go for past 2 days. He denies any nausea or vomiting, he sattes he also had diarrhea past 2 days, denies any dysurea. denies any sick contacts pmhx of dm, htn, hld, gout psurghx: bilateral inguinal hernia repair 1984 and soc: denies: smoking, alcohol, illict drugs rx: metformin, omeprazole, asa, atorvastatin, allopurinol, lisinopril Allergy- NKDA Review of Systems - Review of Systems Review of Systems: ROS-denies any chills, cough not productive, denies any sob, + hiccups, + midepigastric pain, + diarrhea past 2 days, no dysurea denies any chest pain, denies any sob denies any sick contacts symptoms began after eating meal at a restaurant, he said the food was new for him( meat inside) Past Patient History - Past Medical History & Family History Past Medical History?: Yes - Past Social History Smoking Status: Never Smoked Alcohol: None Drugs: Denies Home Situation {Lives}: Alone - CARDIAC Hx Hypercholesterolemia: Yes Hx Hypertension: Yes - PULMONARY Hx Respiratory Disorders: No - NEUROLOGICAL Hx Neurological Disorder: No - HEENT Hx HEENT Problems: No - RENAL Hx Chronic Kidney Disease: No - ENDOCRINE/METABOLIC Hx Diabetes Mellitus Type 2: Yes - HEMATOLOGICAL/ONCOLOGICAL Hx Blood Disorders: No - INTEGUMENTARY Hx Dermatological Problems: No - MUSCULOSKELETAL/RHEUMATOLOGICAL Hx Musculoskeletal Disorders: No - GASTROINTESTINAL Hx Gastritis: Yes - GENITOURINARY/GYNECOLOGICAL Hx Genitourinary Disorders: No - PSYCHIATRIC Hx Psychophysiologic Disorder: No - SURGICAL HISTORY Hx Surgeries: Yes Hx Herniorrhaphy: Yes (BL) Other/Comment: Hernia surgery x 2 1984, 1989 - ANESTHESIA Hx Anesthesia: Yes Hx Anesthesia Reactions: No Hx Malignant Hyperthermia: No Has any member of the family had a problem w/ anesthesia?: No Meds Allergies/Adverse Reactions: Allergies Allergy/AdvReac Type Severity Reaction Status Date / Time No Known Allergies Allergy Verified 01/03/17 11:50 - Medications Medications: Current Medications Acetaminophen (Tylenol 325mg Tab) 650 mg PO Q6 PRN PRN Reason: Fever >100.4 F Allopurinol (Zyloprim) 300 mg PO DAILY [facility] Amlodipine Besylate (Norvasc) 10 mg PO DAILY [facility] Last Admin: 11/13/17 12:16 Dose: 10 mg Atorvastatin Calcium (Lipitor) 20 mg PO DAILY [facility] Dextrose (Dextrose 50% Inj) 0 ml IV STAT PRN; Protocol PRN Reason: Hypoglycemia Protocol Dextrose (Glutose 15) 0 gm PO ONCE PRN; Protocol PRN Reason: Hypoglycemia Protocol Famotidine (Pepcid) 20 mg PO DAILY [facility] Glucagon (Glucagen Diagnostic Kit) 0 mg IM STAT PRN; Protocol PRN Reason: Hypoglycemia Protocol Azithromycin 500 mg/ Sodium (Chloride) 250 mls @ 250 mls/hr IVPB DAILY [facility] PRN Reason: Protocol Ceftriaxone Sodium 1 gm/ (Sodium Chloride) 100 mls @ 100 mls/hr IVPB DAILY [facility] PRN Reason: Protocol Insulin Human Regular (Humulin R) 0 units SC ACHS [facility] PRN Reason: Protocol Lisinopril (Zestril) 20 mg PO DAILY [facility] Last Admin: 11/13/17 12:17 Dose: 20 mg Metformin HCl (Glucophage) 500 mg PO DAILY [facility] Last Admin: 11/13/17 12:16 Dose: 500 mg Physical Exam - Constitutional Appears: No Acute Distress - Head Exam Head Exam: ATRAUMATIC - Eye Exam Eye Exam: EOMI - ENT Exam Additional comments: poor dentition - Neck Exam Neck exam: Positive for: Full Rom - Respiratory Exam Respiratory Exam: Clear to Auscultation Bilateral, NORMAL BREATHING PATTERN Additional comments: no wheezing - Cardiovascular Exam Cardiovascular Exam: RRR, +S1, +S2 - GI/Abdominal Exam Additional comments: somewhat distended soft + BS minimal tenderness in midepigastric region with palpation no guarding, no rebound - Extremities Exam Additional comments: no edema b/l LE - Neurological Exam Neurological exam: Alert, Oriented x3 Results - Vital Signs Recent Vital Signs: Last Vital Signs Temp 97.8 F 11/13/17 11:34 Pulse 86 11/13/17 12:17 Resp 16 11/13/17 11:34 BP 150/90 11/13/17 12:17 Pulse Ox 96 11/13/17 11:30 - Labs Result Diagrams: 11/13/17 00:06 11/13/17 03:25 Labs: Laboratory Results - last 24 hr 11/13/17 11/13/17 11/13/17 00:06 00:06 00:06 WBC 17.9 H D RBC 5.00 Hgb 14.4 Hct 43.1 MCV 86.2 MCH 28.9 MCHC 33.5 RDW 15.2 H Plt Count 372 MPV 8.0 Neut % (Auto) 88.8 H Lymph % (Auto) 3.6 L Stevens % (Auto) 6.8 Eos % (Auto) 0.2 Baso % (Auto) 0.6 Neut # (Auto) 15.9 H Lymph # (Auto) 0.6 L Stevens # (Auto) 1.2 H Eos # (Auto) 0.0 Baso # (Auto) 0.1 Neutrophils % (Manual) 81 H Band Neutrophils % 2 Lymphocytes % (Manual) 10 L Reactive Lymphs % 2 H Monocytes % (Manual) 3 Eosinophils % (Manual) 2 Platelet Estimate Normal Hypochromasia (manual) Slight Anisocytosis (manual) Slight Tear Drop Cells Slight PT 12.6 INR 1.1 APTT 35.3 pO2 VBG pH VBG pCO2 VBG HCO3 VBG Total CO2 VBG O2 Sat (Calc) VBG Base Excess VBG Potassium Glucose Lactate FiO2 Sodium 140 Potassium 5.5 H Chloride 104 Carbon Dioxide 15 L Anion Gap 27 H BUN 35 H Creatinine 1.7 H Est GFR ( Amer) 48 Est GFR (Non-Af Amer) 40 POC Glucose (mg/dL) Random Glucose 210 H Calcium 8.6 Total Bilirubin 1.3 AST 70 H ALT 41 Alkaline Phosphatase 139 H Troponin I 0.0200 Total Protein 9.7 H Albumin 4.7 Globulin 5.0 H Albumin/Globulin Ratio 0.9 L Lipase 72 Venous Blood Potassium Blood Type Antibody Screen BBK History Checked 11/13/17 11/13/17 11/13/17 03:25 03:25 03:39 WBC RBC Hgb Hct MCV MCH MCHC RDW Plt Count MPV Neut % (Auto) Lymph % (Auto) Stevens % (Auto) Eos % (Auto) Baso % (Auto) Neut # (Auto) Lymph # (Auto) Stevens # (Auto) Eos # (Auto) Baso # (Auto) Neutrophils % (Manual) Band Neutrophils % Lymphocytes % (Manual) Reactive Lymphs % Monocytes % (Manual) Eosinophils % (Manual) Platelet Estimate Hypochromasia (manual) Anisocytosis (manual) Tear Drop Cells PT INR APTT pO2 47 VBG pH 7.31 L VBG pCO2 32 L VBG HCO3 17.4 VBG Total CO2 17.1 L VBG O2 Sat (Calc) 85.2 H VBG Base Excess -9.0 L VBG Potassium 4.0 Glucose 247 H Lactate 1.8 FiO2 21.0 Sodium 140 136.0 Potassium 4.1 Chloride 107 109.0 H Carbon Dioxide 14 L Anion Gap 23 H BUN 34 H Creatinine 1.5 Est GFR ( Amer) 55 Est GFR (Non-Af Amer) 46 POC Glucose (mg/dL) Random Glucose 224 H Calcium 8.5 Total Bilirubin AST ALT Alkaline Phosphatase Troponin I Total Protein Albumin Globulin Albumin/Globulin Ratio Lipase Venous Blood Potassium 4.0 Blood Type O POSITIVE Antibody Screen Negative BBK History Checked No verified bt 11/13/17 10:29 WBC RBC Hgb Hct MCV MCH MCHC RDW Plt Count MPV Neut % (Auto) Lymph % (Auto) Stevens % (Auto) Eos % (Auto) Baso % (Auto) Neut # (Auto) Lymph # (Auto) Stevens # (Auto) Eos # (Auto) Baso # (Auto) Neutrophils % (Manual) Band Neutrophils % Lymphocytes % (Manual) Reactive Lymphs % Monocytes % (Manual) Eosinophils % (Manual) Platelet Estimate Hypochromasia (manual) Anisocytosis (manual) Tear Drop Cells PT INR APTT pO2 VBG pH VBG pCO2 VBG HCO3 VBG Total CO2 VBG O2 Sat (Calc) VBG Base Excess VBG Potassium Glucose Lactate FiO2 Sodium Potassium Chloride Carbon Dioxide Anion Gap BUN Creatinine Est GFR ( Amer) Est GFR (Non-Af Amer) POC Glucose (mg/dL) 201 H Random Glucose Calcium Total Bilirubin AST ALT Alkaline Phosphatase Troponin I Total Protein Albumin Globulin Albumin/Globulin Ratio Lipase Venous Blood Potassium Blood Type Antibody Screen BBK History Checked Accession No. : [id number] Patient Name / ID : RADHA FAY / [id number] Exam Date : 11/13/2017 00:51:08 ( Approved ) Study Comment : Sex / Age : M / 72Y Creator : Rowan Villeda MD Dictator : Rowan Villeda MD Process Mechanic : Tennis Director : Rowan Villeda MD Approver2 : Report Date : 11/13/2017 09:48:30 My Comment : HISTORY: COMPARISON: 09/27/2013. TECHNIQUE: Chest PA and lateral FINDINGS: LINES AND TUBES: None. LUNG AND PLEURA: The lungs are well inflated and clear. HEART AND MEDIASTINUM: The heart is not enlarged. The hilar and mediastinal contours are within normal limits. SKELETAL STRUCTURES: The bony structures are within normal limits for the patient's age. VISUALIZED UPPER ABDOMEN: Normal. OTHER FINDINGS: None. IMPRESSION: No active pulmonary disease. Accession No. : [id number] Patient Name / ID : RADHA FAY / [id number] Exam Date : 11/13/2017 04:51:29 ( Approved ) Study Comment : Sex / Age : M / 72Y Creator : Freda Sher MD Dictator : Process Mechanic : Tennis Director : Freda Sher MD Approver2 : Report Date : 11/13/2017 06:27:00 My Comment : [facility] Division of Radiology [address] [place] [address] Tel. no. Patient Name: NYA GARCIA Pt. Address: [address] [place] [address] Rec #: [id number] [place] [address]: MD Kofi Moreno Pt CELL Order Location: TOM : 1945 Male Age: 72 Order #: [id number] Reason for exam: epig pain, r/o dissection CT Scan DISSECTION STUDY Exam Date: 11/13/17 This imaging exam was performed at [facility] EXAM: CT Angiography Chest With Intravenous Contrast CT Angiography Abdomen and Pelvis With Intravenous Contrast EXAM DATE/TIME: 11/13/2017 4:32 AM CLINICAL HISTORY: 72 years old, male; Pain; Abdominal pain; Epigastric; Chest pain; Additional info: Epig pain, R/O dissection TECHNIQUE: Axial computed tomographic angiography images of the chest, abdomen and pelvis with intravenous contrast using CT angiography protocol. All CT scans at this facility use one or more dose reduction techniques, viz.: automated exposure control; ma/kV adjustment per patient size (including targeted exams where dose is matched to indication; i.e. head); or iterative reconstruction technique. All CT scans at this facility use one or more dose reduction techniques, viz.: automated exposure control; ma/kV adjustment per patient size (including targeted exams where dose is matched to indication; i.e. head); or iterative reconstruction technique. MIP reconstructed images were created and reviewed. Coronal and sagittal reformatted images were created and reviewed. CONTRAST: 95 mL of [id number] administered intravenously. COMPARISON: Recent chest radiographs. FINDINGS: VASCULATURE: AORTA: No evidence of aortic dissection or aneurysm. PULMONARY ARTERIES: Contrast opacification of the pulmonary arteries is adequate, and there are no filling defects seen to suggest pulmonary embolism. GREAT VESSELS OF AORTIC ARCH: No evidence of occlusion or significant stenosis. CELIAC TRUNK AND MESENTERIC ARTERIES: No occlusion or significant stenosis. RENAL ARTERIES: No evidence of occlusion or significant stenosis. ILIAC ARTERIES: No evidence of occlusion or significant stenosis. CHEST: LUNGS: Subtle, patchy areas of groundglass density in the lingula and right middle lobe, suspicious for subtle, bilateral groundglass consolidation. No evidence of diffuse pulmonary vascular congestion. PLEURAL SPACE: No pneumothorax or pleural effusions seen. HEART: No evidence of significant pericardial effusion. MEDIASTINUM: Mild, diffuse esophageal wall thickening. The mid and distal esophagus appear fluid filled and mildly dilated. Findings could be secondary to mild esophagitis. Small hiatal hernia. No CT evidence of esophageal perforation. ABDOMEN: LIVER: Fatty infiltration of the liver. GALLBLADDER AND BILE DUCTS: No evidence of acute cholecystitis. PANCREAS: No evidence of acute pancreatitis. SPLEEN: No acute abnormality of the spleen identified. ADRENALS: No acute abnormality of the adrenal glands identified. KIDNEYS AND URETERS: Low density lesion in the right kidney, most likely a cyst. This measures 4.3 cm No evidence of hydroureteronephrosis. STOMACH AND BOWEL: Colonic diverticulosis, with no evidence of acute diverticulitis. Otherwise, no significant abnormality of the bowel seen. No evidence of bowel obstruction. . APPENDIX: Appendix is seen, and is within normal limits in appearance. PELVIS: BLADDER: No acute abnormality of the bladder identified. Negative. REPRODUCTIVE: Enlarged prostate gland, which indents the base of the bladder. CHEST, ABDOMEN and PELVIS: INTRAPERITONEAL SPACE: No evidence of free fluid or free air. BONES/JOINTS: No acute bony abnormality identified. SOFT TISSUES: 3.9 cm fluid density, round masslike area is seen in the left inguinal canal superiorly. Most likely, this represents a small lymphocele, possibly related to previous left inguinal hernia repair. Recommend clinical correlation. Bilateral gynecomastia. LYMPH NODES: No evidence of diffuse lymphadenopathy. IMPRESSION: - Findings suspicious for subtle groundglass consolidation in the right middle lobe and lingula. In an acute setting, the findings are suspicious for subtle, bilateral groundglass infiltrates. - Esophageal findings which could be secondary to mild esophagitis, such as reflux esophagitis. - Otherwise, no evidence of significant acute process. No evidence of aortic dissection. - Probable lymphocele in the left inguinal canal superiorly. - See above for remaining findings. Dictated By: Freda Sher MD Dictated Date/Time: 11/13/17626 Signed By: Freda Sher MD Date Signed: [id number] Transcribed By: JULIUS Transcribe Date/Time : 11/13/17626 RM02/ANIKA Assessment & Plan (1) Leukocytosis Status: Acute (2) Pneumonia Status: Acute (3) Diarrhea Status: Acute (4) Abdominal pain Status: Acute - Assessment and Plan (Free Text) Assessment: A/P- 72 year old male admitted with cough/hiccups, diarrhe abd pain. found to have high wbc count ? ground glass opacity on chest Ct as per report. plan- check blood cx x2 check sputum cx. check stool culture. check stool c.diff. agree with coverage for CAP for now with ceftriaoxne and zithromax. check for mycoplasma and Urine legionella as well. f/u repeat wbc in am. all above d/w patient and he verbalizes full understanding of all above. Thank you for allowing me to take part in the care of this patient.
[2017-11-13] MEDS: Insulin Regular 100 units/ml SC SCH (16:27)
--- NOTE | 2017-11-13 18:12 | CARD ---
APPROVED REPORT EKG Measurement Heart [id number] MI [id number] <Conclusion> Sinus tachycardia Otherwise normal ECG
[2017-11-14 07:54] LABS: HDL CHOLESTEROL 18 MG/DL (30-70)
[2017-11-14 08:05] LABS: LDL CHOLESTEROL 41 mg/dL (0-129)
--- NOTE | 2017-11-14 08:26 | CP.PCM.PN ---
<Guillermina Vega - Last Filed: 11/14/17 14:03> Subjective - Date & Time of Evaluation Date of Evaluation: 11/14/17 Time of Evaluation: 08:25 - Subjective Subjective: no overnight events. Denies chest pain, SOB. productive cough improved. Hiccups restarted q2hr. Denies n/v. Eating/drinking. Making UOP and BM. Objective - Vital Signs/Intake and Output Vital Signs (last 24 hours): Temp Pulse Resp BP Pulse Ox 98.3 F 76 20 114/66 96 11/14/17 08:21 11/14/17 08:21 11/14/17 08:21 11/14/17 08:21 11/14/17 08:21 - Medications Medications: Current Medications Acetaminophen (Tylenol 325mg Tab) 650 mg PO Q6 PRN PRN Reason: Fever >100.4 F Allopurinol (Zyloprim) 300 mg PO DAILY [facility] Last Admin: 11/13/17 16:29 Dose: 300 mg Amlodipine Besylate (Norvasc) 10 mg PO DAILY [facility] Last Admin: 11/13/17 12:16 Dose: 10 mg Atorvastatin Calcium (Lipitor) 20 mg PO DAILY [facility] Last Admin: 11/13/17 16:29 Dose: 20 mg Dextrose (Dextrose 50% Inj) 0 ml IV STAT PRN; Protocol PRN Reason: Hypoglycemia Protocol Dextrose (Glutose 15) 0 gm PO ONCE PRN; Protocol PRN Reason: Hypoglycemia Protocol Enoxaparin Sodium (Lovenox) 40 mg SC DAILY [facility] PRN Reason: Protocol Famotidine (Pepcid) 20 mg PO DAILY [facility] Last Admin: 11/13/17 16:29 Dose: 20 mg Glucagon (Glucagen Diagnostic Kit) 0 mg IM STAT PRN; Protocol PRN Reason: Hypoglycemia Protocol Azithromycin 500 mg/ Sodium (Chloride) 250 mls @ 250 mls/hr IVPB DAILY [facility] PRN Reason: Protocol Ceftriaxone Sodium 1 gm/ (Sodium Chloride) 100 mls @ 100 mls/hr IVPB DAILY [facility] PRN Reason: Protocol Insulin Human Regular (Humulin R) 0 units SC ACHS [facility] PRN Reason: Protocol Last Admin: 11/13/17 16:27 Dose: Not Given Lisinopril (Zestril) 20 mg PO DAILY [facility] Last Admin: 11/13/17 12:17 Dose: 20 mg Metformin HCl (Glucophage) 500 mg PO DAILY [facility] Last Admin: 11/13/17 12:16 Dose: 500 mg - Labs Labs: 11/13/17 00:06 11/13/17 03:25 PT 12.6 Seconds (9.8-13.1) 11/13/17 00:06 INR 1.1 (0.9-1.2) 11/13/17 00:06 APTT 35.3 Seconds (25.6-37.1) 11/13/17 00:06 - Constitutional Appears: Well, No Acute Distress - Head Exam Head Exam: NORMAL INSPECTION - Eye Exam Eye Exam: Normal appearance - ENT Exam ENT Exam: Mucous Membranes Moist - Neck Exam Neck Exam: Full ROM, Normal Inspection - Respiratory Exam Respiratory Exam: Clear to Ausculation Bilateral. absent: Rales, Rhonchi - Cardiovascular Exam Cardiovascular Exam: REGULAR RHYTHM - GI/Abdominal Exam GI & Abdominal Exam: Soft. absent: Tenderness - Extremities Exam Extremities Exam: Normal Inspection. absent: Tenderness - Back Exam Back Exam: NORMAL INSPECTION - Neurological Exam Neurological Exam: Alert, Oriented x3 - Skin Skin Exam: Dry, Warm Assessment and Plan - Assessment and Plan (Free Text) Assessment: A: 72yo M with PMHx of DM, HTN, HLD, gout admitted for b/l CAP. P: c/w IV abx Community Acquired Pneumonia, b/l lobes -CT dissection: no dissection of aorta; subtle groundglass consolidation on R middle lobe and lingula. subtle bl groundglass infiltrates. possible mild esophagitis. -Ceftriaxone 2 gm IVP -azithromycin 500 mg IVPB -ID Dr. Barrientos consulted: recommendations appreciated leukocytosis -resolved diarrhea -improved -pending C diff collection -contact precautions -ID Dr. Barrientos consulted: recommendations appreciated Hiccups -start thorazine Diabetes Mellitus -Accucheck ACHS -Medium correction scale -Continue home med: Metformin 500 mg Hypertension - Continue home meds: Lisinopril 20mg; Amlodipine 10 mg Reflux esophagitis - Famotididine 20 mg DVT prophylaxis -Lovenox 40 mg SQ -scd Dispo: if afebrile and clinically improved, may d/c tomorrow <Daily Abdi - Last Filed: 11/15/17 08:52> Objective - Vital Signs/Intake and Output Vital Signs (last 24 hours): Temp Pulse Resp BP Pulse Ox 98.3 F 75 20 146/78 96 11/15/17 08:00 11/15/17 08:00 11/15/17 08:00 11/15/17 08:00 11/15/17 08:00 - Medications Medications: Current Medications Acetaminophen (Tylenol 325mg Tab) 650 mg PO Q6 PRN PRN Reason: Fever >100.4 F Acetaminophen (Tylenol 325mg Tab) 650 mg PO Q6 PRN PRN Reason: Pain, moderate (4-7) Last Admin: 11/14/17 17:08 Dose: 650 mg Allopurinol (Zyloprim) 300 mg PO DAILY [facility] Last Admin: 11/14/17 09:13 Dose: 300 mg Amlodipine Besylate (Norvasc) 10 mg PO DAILY [facility] Last Admin: 11/14/17 09:12 Dose: 10 mg Atorvastatin Calcium (Lipitor) 20 mg PO DAILY [facility] Last Admin: 11/14/17 09:11 Dose: 20 mg Chlorpromazine (Thorazine) 25 mg PO Q8 PRN PRN Reason: Hiccups Last Admin: 11/14/17 12:20 Dose: 25 mg Chlorpromazine (Thorazine) 25 mg PO ONCE ONE Stop: 11/15/17 11:14 Dextrose (Dextrose 50% Inj) 0 ml IV STAT PRN; Protocol PRN Reason: Hypoglycemia Protocol Dextrose (Glutose 15) 0 gm PO ONCE PRN; Protocol PRN Reason: Hypoglycemia Protocol Enoxaparin Sodium (Lovenox) 40 mg SC DAILY [facility] PRN Reason: Protocol Last Admin: 11/14/17 09:12 Dose: 40 mg Famotidine (Pepcid) 20 mg PO DAILY [facility] Last Admin: 11/14/17 09:13 Dose: 20 mg Glucagon (Glucagen Diagnostic Kit) 0 mg IM STAT PRN; Protocol PRN Reason: Hypoglycemia Protocol Azithromycin 500 mg/ Sodium (Chloride) 250 mls @ 250 mls/hr IVPB DAILY [facility] PRN Reason: Protocol Last Admin: 11/14/17 09:19 Dose: 250 mls/hr Ceftriaxone Sodium 1 gm/ (Sodium Chloride) 100 mls @ 100 mls/hr IVPB DAILY [facility] PRN Reason: Protocol Last Admin: 11/14/17 11:04 Dose: 100 mls/hr Insulin Human Regular (Humulin R) 0 units SC ACHS [facility] PRN Reason: Protocol Last Admin: 11/15/17 07:06 Dose: Not Given Lisinopril (Zestril) 20 mg PO DAILY [facility] Last Admin: 11/14/17 09:13 Dose: 20 mg Metformin HCl (Glucophage) 500 mg PO DAILY [facility] Last Admin: 11/14/17 09:11 Dose: 500 mg - Labs Labs: 11/15/17 06:54 11/15/17 06:54 PT 12.6 Seconds (9.8-13.1) 11/13/17 00:06 INR 1.1 (0.9-1.2) 11/13/17 00:06 APTT 35.3 Seconds (25.6-37.1) 11/13/17 00:06 Attending/Attestation - Attestation I have personally seen and examined this patient.: Yes I have fully participated in the care of the patient.: Yes I have reviewed all pertinent clinical information, including history, physical exam and plan: Yes Notes (Text): 11/15/17 08:51 ATTENDING NOTE ATTESTATION. PATIENT SEEN AND EXAMINED. PATIENT REPORTS FEELING IMPROVED. CASE DISCUSSED WITH RESIDENT. AGREE WITH FINDINGS AND PLAN.
[2017-11-14] MEDS: Enoxaparin 40 mg Syringe SC SCH (09:12)
[2017-11-14] MEDS: Insulin Regular 100 units/ml SC SCH ×4 (09:18→21:50)
[2017-11-14] MEDS: Azithromycin 500 MG in Sodium Chloride 0.9% 250 ML IVPB SCH (09:19)
[2017-11-14 13:07] LABS: BASO # 0.1 K/uL (0.0-0.2); BASO % 0.6 % (0.0-2.0); EOS # 0.4 K/uL (0.0-0.7); EOS % 4.4 % (0.0-4.0); HEMOGLOBIN 12.2 g/dL (12.0-18.0); LYMPH # 1.4 K/uL (1.0-4.3); LYMPH % 15.8 % (20.0-40.0); MEAN CELL VOLUME 87.3 fl (80.0-94.0); MEAN CORPUSCULAR HEMOGLOBIN 29.1 pg (27.0-31.0); MEAN CORPUSCULAR HGB CONC 33.3 g/dL (33.0-37.0); MEAN PLATELET VOLUME 7.6 fl (7.2-11.7); MONO # 1.1 K/uL (0.0-0.8); MONO % 11.9 % (0.0-10.0); NEUT # 6.1 K/uL (1.8-7.0); NEUT % 67.3 % (50.0-75.0); RBC 4.19 Mil/uL (4.40-5.90)
[2017-11-14 13:19] LABS: CALCIUM 8.3 mg/dL (8.4-10.2)
--- NOTE | 2017-11-14 15:43 | CP.PCM.PN ---
Subjective - Date & Time of Evaluation Date of Evaluation: 11/14/17 Time of Evaluation: 15:43 - Subjective Subjective: ID Note- Pt. seen and examined today. denies any fever . states he was given medication for the hicups and has not had any further episodes of hiccups in the past 3 hours. also states diarrhea only 1 episode this am. Objective - Vital Signs/Intake and Output Vital Signs (last 24 hours): Temp Pulse Resp BP Pulse Ox 98.2 F 81 18 117/70 97 11/14/17 12:00 11/14/17 12:00 11/14/17 12:00 11/14/17 12:00 11/14/17 12:00 - Medications Medications: Current Medications Acetaminophen (Tylenol 325mg Tab) 650 mg PO Q6 PRN PRN Reason: Fever >100.4 F Allopurinol (Zyloprim) 300 mg PO DAILY [facility] Last Admin: 11/14/17 09:13 Dose: 300 mg Amlodipine Besylate (Norvasc) 10 mg PO DAILY [facility] Last Admin: 11/14/17 09:12 Dose: 10 mg Atorvastatin Calcium (Lipitor) 20 mg PO DAILY [facility] Last Admin: 11/14/17 09:11 Dose: 20 mg Chlorpromazine (Thorazine) 25 mg PO Q8 PRN PRN Reason: Hiccups Last Admin: 11/14/17 12:20 Dose: 25 mg Chlorpromazine (Thorazine) 25 mg PO ONCE ONE Stop: 11/15/17 11:14 Dextrose (Dextrose 50% Inj) 0 ml IV STAT PRN; Protocol PRN Reason: Hypoglycemia Protocol Dextrose (Glutose 15) 0 gm PO ONCE PRN; Protocol PRN Reason: Hypoglycemia Protocol Enoxaparin Sodium (Lovenox) 40 mg SC DAILY [facility] PRN Reason: Protocol Last Admin: 11/14/17 09:12 Dose: 40 mg Famotidine (Pepcid) 20 mg PO DAILY [facility] Last Admin: 11/14/17 09:13 Dose: 20 mg Glucagon (Glucagen Diagnostic Kit) 0 mg IM STAT PRN; Protocol PRN Reason: Hypoglycemia Protocol Azithromycin 500 mg/ Sodium (Chloride) 250 mls @ 250 mls/hr IVPB DAILY [facility] PRN Reason: Protocol Last Admin: 11/14/17 09:19 Dose: 250 mls/hr Ceftriaxone Sodium 1 gm/ (Sodium Chloride) 100 mls @ 100 mls/hr IVPB DAILY [facility] PRN Reason: Protocol Last Admin: 11/14/17 11:04 Dose: 100 mls/hr Insulin Human Regular (Humulin R) 0 units SC ACHS LEXY PRN Reason: Protocol Last Admin: 11/14/17 12:22 Dose: 2 unit Lisinopril (Zestril) 20 mg PO DAILY [facility] Last Admin: 11/14/17 09:13 Dose: 20 mg Metformin HCl (Glucophage) 500 mg PO DAILY [facility] Last Admin: 11/14/17 09:11 Dose: 500 mg - Labs Labs: - Additional Findings Additional findings: - Constitutional Appears: No Acute Distress - Head Exam Head Exam: ATRAUMATIC - Eye Exam Eye Exam: EOMI - ENT Exam Additional comments: poor dentition - Neck Exam Neck exam: Positive for: Full Rom - Respiratory Exam Respiratory Exam: Clear to Auscultation Bilateral, NORMAL BREATHING PATTERN Additional comments: no wheezing - Cardiovascular Exam Cardiovascular Exam: RRR, +S1, +S2 - GI/Abdominal Exam Additional comments: somewhat distended soft + BS no tenderness no guarding, no rebound - Extremities Exam Additional comments: no edema b/l LE - Neurological Exam Neurological exam: Alert, Oriented x 3 Laboratory Results - last 72 hr 11/13/17 11/13/17 11/13/17 00:06 00:06 00:06 WBC 17.9 H D RBC 5.00 Hgb 14.4 Hct 43.1 MCV 86.2 MCH 28.9 MCHC 33.5 RDW 15.2 H Plt Count 372 MPV 8.0 Neut % (Auto) 88.8 H Lymph % (Auto) 3.6 L [place] % (Auto) 6.8 Eos % (Auto) 0.2 Baso % (Auto) 0.6 Neut # (Auto) 15.9 H Lymph # (Auto) 0.6 L [place] # (Auto) 1.2 H Eos # (Auto) 0.0 Baso # (Auto) 0.1 Neutrophils % (Manual) 81 H Band Neutrophils % 2 Lymphocytes % (Manual) 10 L Reactive Lymphs % 2 H Monocytes % (Manual) 3 Eosinophils % (Manual) 2 Platelet Estimate Normal Hypochromasia (manual) Slight Anisocytosis (manual) Slight Tear Drop Cells Slight PT 12.6 INR 1.1 APTT 35.3 pO2 VBG pH VBG pCO2 VBG HCO3 VBG Total CO2 VBG O2 Sat (Calc) VBG Base Excess VBG Potassium Glucose Lactate FiO2 Sodium 140 Potassium 5.5 H Chloride 104 Carbon Dioxide 15 L Anion Gap 27 H BUN 35 H Creatinine 1.7 H Est GFR ( Amer) 48 Est GFR (Non-Af Amer) 40 POC Glucose (mg/dL) Random Glucose 210 H Calcium 8.6 Total Bilirubin 1.3 AST 70 H ALT 41 Alkaline Phosphatase 139 H Troponin I 0.0200 Total Protein 9.7 H Albumin 4.7 Globulin 5.0 H Albumin/Globulin Ratio 0.9 L Triglycerides Cholesterol LDL Cholesterol Direct HDL Cholesterol Lipase 72 Venous Blood Potassium Blood Type Blood Type Confirm Antibody Screen BBK History Checked 11/13/17 11/13/17 11/13/17 03:25 03:25 03:39 WBC RBC Hgb Hct MCV MCH MCHC RDW Plt Count MPV Neut % (Auto) Lymph % (Auto) [place] % (Auto) Eos % (Auto) Baso % (Auto) Neut # (Auto) Lymph # (Auto) [place] # (Auto) Eos # (Auto) Baso # (Auto) Neutrophils % (Manual) Band Neutrophils % Lymphocytes % (Manual) Reactive Lymphs % Monocytes % (Manual) Eosinophils % (Manual) Platelet Estimate Hypochromasia (manual) Anisocytosis (manual) Tear Drop Cells PT INR APTT pO2 47 VBG pH 7.31 L VBG pCO2 32 L VBG HCO3 17.4 VBG Total CO2 17.1 L VBG O2 Sat (Calc) 85.2 H VBG Base Excess -9.0 L VBG Potassium 4.0 Glucose 247 H Lactate 1.8 FiO2 21.0 Sodium 140 136.0 Potassium 4.1 Chloride 107 109.0 H Carbon Dioxide 14 L Anion Gap 23 H BUN 34 H Creatinine 1.5 Est GFR ( Amer) 55 Est GFR (Non-Af Amer) 46 POC Glucose (mg/dL) Random Glucose 224 H Calcium 8.5 Total Bilirubin AST ALT Alkaline Phosphatase Troponin I Total Protein Albumin Globulin Albumin/Globulin Ratio Triglycerides Cholesterol LDL Cholesterol Direct HDL Cholesterol Lipase Venous Blood Potassium 4.0 Blood Type O POSITIVE Blood Type Confirm Antibody Screen Negative BBK History Checked No verified bt 11/13/17 11/13/17 11/13/17 10:29 13:00 16:17 WBC RBC Hgb Hct MCV MCH MCHC RDW Plt Count MPV Neut % (Auto) Lymph % (Auto) [place] % (Auto) Eos % (Auto) Baso % (Auto) Neut # (Auto) Lymph # (Auto) [place] # (Auto) Eos # (Auto) Baso # (Auto) Neutrophils % (Manual) Band Neutrophils % Lymphocytes % (Manual) Reactive Lymphs % Monocytes % (Manual) Eosinophils % (Manual) Platelet Estimate Hypochromasia (manual) Anisocytosis (manual) Tear Drop Cells PT INR APTT pO2 VBG pH VBG pCO2 VBG HCO3 VBG Total CO2 VBG O2 Sat (Calc) VBG Base Excess VBG Potassium Glucose Lactate FiO2 Sodium Potassium Chloride Carbon Dioxide Anion Gap BUN Creatinine Est GFR ( Amer) Est GFR (Non-Af Amer) POC Glucose (mg/dL) 201 H 138 H Random Glucose Calcium Total Bilirubin AST ALT Alkaline Phosphatase Troponin I Total Protein Albumin Globulin Albumin/Globulin Ratio Triglycerides Cholesterol LDL Cholesterol Direct HDL Cholesterol Lipase Venous Blood Potassium Blood Type Blood Type Confirm O POSITIVE Antibody Screen BBK History Checked 11/13/17 11/14/17 11/14/17 20:56 05:30 06:25 WBC RBC Hgb Hct MCV MCH MCHC RDW Plt Count MPV Neut % (Auto) Lymph % (Auto) [place] % (Auto) Eos % (Auto) Baso % (Auto) Neut # (Auto) Lymph # (Auto) [place] # (Auto) Eos # (Auto) Baso # (Auto) Neutrophils % (Manual) Band Neutrophils % Lymphocytes % (Manual) Reactive Lymphs % Monocytes % (Manual) Eosinophils % (Manual) Platelet Estimate Hypochromasia (manual) Anisocytosis (manual) Tear Drop Cells PT INR APTT pO2 VBG pH VBG pCO2 VBG HCO3 VBG Total CO2 VBG O2 Sat (Calc) VBG Base Excess VBG Potassium Glucose Lactate FiO2 Sodium Potassium Chloride Carbon Dioxide Anion Gap BUN Creatinine Est GFR ( Amer) Est GFR (Non-Af Amer) POC Glucose (mg/dL) 194 H 153 H Random Glucose Calcium Total Bilirubin AST ALT Alkaline Phosphatase Troponin I Total Protein Albumin Globulin Albumin/Globulin Ratio Triglycerides 102 Cholesterol 88 LDL Cholesterol Direct 41 HDL Cholesterol 18 L Lipase Venous Blood Potassium Blood Type Blood Type Confirm Antibody Screen BBK History Checked 11/14/17 11/14/17 11/14/17 11:30 12:00 12:00 WBC 9.0 RBC 4.19 L Hgb 12.2 D Hct 36.6 MCV 87.3 MCH 29.1 MCHC 33.3 RDW 15.0 H Plt Count 273 MPV 7.6 Neut % (Auto) 67.3 Lymph % (Auto) 15.8 L [place] % (Auto) 11.9 H Eos % (Auto) 4.4 H Baso % (Auto) 0.6 Neut # (Auto) 6.1 Lymph # (Auto) 1.4 [place] # (Auto) 1.1 H Eos # (Auto) 0.4 Baso # (Auto) 0.1 Neutrophils % (Manual) Band Neutrophils % Lymphocytes % (Manual) Reactive Lymphs % Monocytes % (Manual) Eosinophils % (Manual) Platelet Estimate Hypochromasia (manual) Anisocytosis (manual) Tear Drop Cells PT INR APTT pO2 VBG pH VBG pCO2 VBG HCO3 VBG Total CO2 VBG O2 Sat (Calc) VBG Base Excess VBG Potassium Glucose Lactate FiO2 Sodium 144 Potassium 4.0 Chloride 110 H Carbon Dioxide 20 L Anion Gap 18 BUN 23 H Creatinine 1.4 Est GFR ( Amer) 60 Est GFR (Non-Af Amer) 50 POC Glucose (mg/dL) 159 H Random Glucose 121 H Calcium 8.3 L Total Bilirubin AST ALT Alkaline Phosphatase Troponin I Total Protein Albumin Globulin Albumin/Globulin Ratio Triglycerides Cholesterol LDL Cholesterol Direct HDL Cholesterol Lipase Venous Blood Potassium Blood Type Blood Type Confirm Antibody Screen BBK History Checked Assessment and Plan (1) Leukocytosis Status: Acute (2) Pneumonia Status: Acute (3) Diarrhea Status: Acute (4) Abdominal pain Status: Acute - Assessment and Plan (Free Text) Assessment: A/P- 72 year old male admitted with cough/hiccups, diarrhe abd pain. afebrile leukocytosis resolved. ? ground glass opacity on chest Ct as per report. plan- await blood and sputum cx. await stool culture. await stool c.diff. agree with coverage for CAP for now with ceftriaoxne and zithromax. day #2. await mycoplasma and Urine legionella results. all above d/w patient and he verbalizes full understanding of all above.
[2017-11-15] MEDS: Insulin Regular 100 units/ml SC SCH ×2 (07:06→12:30)
[2017-11-15 08:11] VITALS: RESP 20
[2017-11-15 08:15] LABS: BASO # 0.1 K/uL (0.0-0.2); BASO % 0.6 % (0.0-2.0); EOS # 0.5 K/uL (0.0-0.7); EOS % 5.4 % (0.0-4.0); HEMOGLOBIN 11.7 g/dL (12.0-18.0); LYMPH # 1.4 K/uL (1.0-4.3); LYMPH % 16.8 % (20.0-40.0); MEAN CELL VOLUME 86.7 fl (80.0-94.0); MEAN CORPUSCULAR HEMOGLOBIN 29.2 pg (27.0-31.0); MEAN CORPUSCULAR HGB CONC 33.7 g/dL (33.0-37.0); MEAN PLATELET VOLUME 7.8 fl (7.2-11.7); MONO # 0.8 K/uL (0.0-0.8); MONO % 8.9 % (0.0-10.0); NEUT # 5.8 K/uL (1.8-7.0); NEUT % 68.3 % (50.0-75.0); RBC 4.01 Mil/uL (4.40-5.90); RED CELL DISTRIBUTION WIDTH 14.6 % (11.5-14.5); WHITE BLOOD COUNT 8.5 K/uL (4.8-10.8)
[2017-11-15 08:24] LABS: CALCIUM 8.4 mg/dL (8.4-10.2)
[2017-11-15] MEDS: Azithromycin 500 MG in Sodium Chloride 0.9% 250 ML IVPB SCH (10:00)
[2017-11-15] MEDS: Enoxaparin 40 mg Syringe SC SCH (10:00)
--- NOTE | 2017-11-15 14:20 | CP.PCM.DIS ---
<Олег Richard - Last Filed: 11/15/17 14:06> Provider - Provider Date of Admission: 11/13/17 06:41 Attending physician: Azucena Hannah MD Time Spent in preparation of Discharge (in minutes): 20 Diagnosis - Discharge Diagnosis (1) Bilateral pneumonia Status: Acute Hospital Course - Lab Results Lab Results: Most Recent Lab Values WBC 8.5 K/uL (4.8-10.8) 11/15/17 06:54 RBC 4.01 Mil/uL (4.40-5.90) L 11/15/17 06:54 Hgb 11.7 g/dL (12.0-18.0) L 11/15/17 06:54 Hct 34.8 % (35.0-51.0) L 11/15/17 06:54 MCV 86.7 fl (80.0-94.0) 11/15/17 06:54 MCH 29.2 pg (27.0-31.0) 11/15/17 06:54 MCHC 33.7 g/dL (33.0-37.0) 11/15/17 06:54 RDW 14.6 % (11.5-14.5) H 11/15/17 06:54 Plt Count 253 K/uL (130-400) 11/15/17 06:54 MPV 7.8 fl (7.2-11.7) 11/15/17 06:54 Neut % (Auto) 68.3 % (50.0-75.0) 11/15/17 06:54 Lymph % (Auto) 16.8 % (20.0-40.0) L 11/15/17 06:54 [place] % (Auto) 8.9 % (0.0-10.0) 11/15/17 06:54 Eos % (Auto) 5.4 % (0.0-4.0) H 11/15/17 06:54 Baso % (Auto) 0.6 % (0.0-2.0) 11/15/17 06:54 Neut # (Auto) 5.8 K/uL (1.8-7.0) 11/15/17 06:54 Lymph # (Auto) 1.4 K/uL (1.0-4.3) 11/15/17 06:54 [place] # (Auto) 0.8 K/uL (0.0-0.8) 11/15/17 06:54 Eos # (Auto) 0.5 K/uL (0.0-0.7) 11/15/17 06:54 Baso # (Auto) 0.1 K/uL (0.0-0.2) 11/15/17 06:54 Neutrophils % (Manual) 81 % (42-75) H 11/13/17 00:06 Band Neutrophils % 2 % (0-2) 11/13/17 00:06 Lymphocytes % (Manual) 10 % (20-50) L 11/13/17 00:06 Reactive Lymphs % 2 % (0-0) H 11/13/17 00:06 Monocytes % (Manual) 3 % (0-10) 11/13/17 00:06 Eosinophils % (Manual) 2 % (0-7) 11/13/17 00:06 Platelet Estimate Normal (NORMAL) 11/13/17 00:06 Hypochromasia (manual) Slight 11/13/17 00:06 Anisocytosis (manual) Slight 11/13/17 00:06 Tear Drop Cells Slight 11/13/17 00:06 PT 12.6 Seconds (9.8-13.1) 11/13/17 00:06 INR 1.1 (0.9-1.2) 11/13/17 00:06 APTT 35.3 Seconds (25.6-37.1) 11/13/17 00:06 pO2 47 mm/Hg (30-55) 11/13/17 03:39 VBG pH 7.31 (7.32-7.43) L 11/13/17 03:39 VBG pCO2 32 mmHg (40-60) L 11/13/17 03:39 VBG HCO3 17.4 mmol/L 11/13/17 03:39 VBG Total CO2 17.1 mmol/L (22-28) L 11/13/17 03:39 VBG O2 Sat (Calc) 85.2 % (40-65) H 11/13/17 03:39 VBG Base Excess -9.0 mmol/L (0.0-2.0) L 11/13/17 03:39 VBG Potassium 4.0 mmol/L (3.6-5.2) 11/13/17 03:39 Sodium 136.0 mmol/L (132-148) 11/13/17 03:39 Chloride 109.0 mmol/L (98-107) H 11/13/17 03:39 Glucose 247 mg/dL (75-110) H 11/13/17 03:39 Lactate 1.8 mmol/L (0.7-2.1) 11/13/17 03:39 FiO2 21.0 % 11/13/17 03:39 Sodium 143 mmol/l (132-148) 11/15/17 06:54 Potassium 3.8 MMOL/L (3.6-5.0) 11/15/17 06:54 Chloride 109 mmol/L (98-107) H 11/15/17 06:54 Carbon Dioxide 20 mmol/L (22-30) L 11/15/17 06:54 Anion Gap 18 (10-20) 11/15/17 06:54 BUN 19 mg/dl (9-20) 11/15/17 06:54 Creatinine 1.4 mg/dl (0.8-1.5) 11/15/17 06:54 Est GFR ( Amer) 60 11/15/17 06:54 Est GFR (Non-Af Amer) 50 11/15/17 06:54 POC Glucose (mg/dL) 191 mg/dL (65-110) H 11/15/17 11:03 Random Glucose 128 mg/dL (75-110) H 11/15/17 06:54 Hemoglobin A1c 8.0 % (4.2-6.5) H 11/14/17 06:25 Calcium 8.4 mg/dL (8.4-10.2) 11/15/17 06:54 Total Bilirubin 1.3 mg/dl (0.2-1.3) 11/13/17 00:06 AST 70 U/L (17-59) H 11/13/17 00:06 ALT 41 U/L (21-72) 11/13/17 00:06 Alkaline Phosphatase 139 U/L (38-126) H 11/13/17 00:06 Troponin I 0.0200 ng/mL (0.00-0.120) 11/13/17 00:06 Total Protein 9.7 G/DL (6.3-8.2) H 11/13/17 00:06 Albumin 4.7 g/dL (3.5-5.0) 11/13/17 00:06 Globulin 5.0 gm/dL (2.2-3.9) H 11/13/17 00:06 Albumin/Globulin Ratio 0.9 (1.0-2.1) L 11/13/17 00:06 Triglycerides 102 mg/DL (0-149) 11/14/17 06:25 Cholesterol 88 mg/dL (0-199) 11/14/17 06:25 LDL Cholesterol Direct 41 mg/dL (0-129) 11/14/17 06:25 HDL Cholesterol 18 MG/DL (30-70) L 11/14/17 06:25 Lipase 72 U/L (23-300) 11/13/17 00:06 Venous Blood Potassium 4.0 mmol/L (3.6-5.2) 11/13/17 03:39 Blood Type O POSITIVE 11/13/17 03:25 Blood Type Confirm O POSITIVE 11/13/17 13:00 Antibody Screen Negative 11/13/17 03:25 BBK History Checked No verified bt 11/13/17 03:25 - Hospital Course Hospital Course: 72yo M with PMHx of DM, HTN, HLD, gout admitted for b/l CAP. Abx: Ceftriaxone 1 gm and Azithromycin 500 mg. Pt stable; for d/c home with Cefuroxime 500 mg BID x 4 days; zithromax 500 mg PO q d x 4 days. on Thorazine 25 mg #6 for occasional hiccups. to follow up with Dr. Willams. Discharge Exam - Head Exam Head Exam: NORMAL INSPECTION - Eye Exam Eye Exam: EOMI - Neck Exam Neck exam: Full Rom - Respiratory Exam Respiratory Exam: Clear to PA & Lateral, NORMAL BREATHING PATTERN. absent: Wheezes - Cardiovascular Exam Cardiovascular Exam: REGULAR RHYTHM, +S1, +S2 - GI/Abdominal Exam GI & Abdominal Exam: Normal Bowel Sounds, Soft. absent: Tenderness - Neurological Exam Neurological exam: Alert, CN II-XII Intact, Oriented x3 - Psychiatric Exam Psychiatric exam: Normal Affect, Normal Mood Discharge Plan - Discharge Medications Prescriptions: Allopurinol [Zyloprim] 300 mg PO DAILY #30 tab amLODIPine [Norvasc] 10 mg PO DAILY #30 tab amLODIPine [Norvasc] 5 mg PO DAILY #30 tab Atorvastatin [Lipitor] 20 mg PO DAILY #30 tab Azithromycin [Zithromax] 500 mg PO DAILY #4 tab Cefuroxime Axetil [Cefuroxime] 500 mg PO BID #8 tablet chlorproMAZINE [Thorazine] 25 mg PO Q8 PRN #6 tab PRN Reason: Hiccups Colchicine 0.6 mg PO Q8 #15 capsule Dicyclomine [Bentyl] 20 mg PO Q12 PRN #20 tab PRN Reason: abdominal pain Famotidine [Pepcid] 20 mg PO Q12 #20 tab Lisinopril [Zestril] 20 mg PO DAILY #30 tab Lisinopril/Hydrochlorothiazide [Lisinopril-Hctz 20-12.5 mg Tab] 1 tab PO DAILY # 30 tablet metFORMIN [glucOPHAGE] 500 mg PO DAILY #30 tab - Follow Up Plan Condition: SERIOUS Disposition: HOME/ ROUTINE Instructions: Pneumonia, Adult (DC) <Daily Abdi - Last Filed: 11/16/17 06:58> Provider - Provider Date of Admission: 11/13/17 06:41 Attending physician: Azucena Hannah MD Consults: ATTENDING NOTE - ATTESTATION. PATIENT FELLING WELL AND WANTS TO GO HOME. PATIENT SEEN AND EXAMINED. CASE DISCUSSED WITH RESIDENT. AGREE WITH FINDINGS AND PLAN. Hospital Course - Lab Results Lab Results: Micro Results 11/14/17 18:15 Blood Blood Culture - Preliminary NO GROWTH AFTER 24 HOURS Most Recent Lab Values WBC 8.5 K/uL (4.8-10.8) 11/15/17 06:54 RBC 4.01 Mil/uL (4.40-5.90) L 11/15/17 06:54 Hgb 11.7 g/dL (12.0-18.0) L 11/15/17 06:54 Hct 34.8 % (35.0-51.0) L 11/15/17 06:54 MCV 86.7 fl (80.0-94.0) 11/15/17 06:54 MCH 29.2 pg (27.0-31.0) 11/15/17 06:54 MCHC 33.7 g/dL (33.0-37.0) 11/15/17 06:54 RDW 14.6 % (11.5-14.5) H 11/15/17 06:54 Plt Count 253 K/uL (130-400) 11/15/17 06:54 MPV 7.8 fl (7.2-11.7) 11/15/17 06:54 Neut % (Auto) 68.3 % (50.0-75.0) 11/15/17 06:54 Lymph % (Auto) 16.8 % (20.0-40.0) L 11/15/17 06:54 [place] % (Auto) 8.9 % (0.0-10.0) 11/15/17 06:54 Eos % (Auto) 5.4 % (0.0-4.0) H 11/15/17 06:54 Baso % (Auto) 0.6 % (0.0-2.0) 11/15/17 06:54 Neut # (Auto) 5.8 K/uL (1.8-7.0) 11/15/17 06:54 Lymph # (Auto) 1.4 K/uL (1.0-4.3) 11/15/17 06:54 [place] # (Auto) 0.8 K/uL (0.0-0.8) 11/15/17 06:54 Eos # (Auto) 0.5 K/uL (0.0-0.7) 11/15/17 06:54 Baso # (Auto) 0.1 K/uL (0.0-0.2) 11/15/17 06:54 Neutrophils % (Manual) 81 % (42-75) H 11/13/17 00:06 Band Neutrophils % 2 % (0-2) 11/13/17 00:06 Lymphocytes % (Manual) 10 % (20-50) L 11/13/17 00:06 Reactive Lymphs % 2 % (0-0) H 11/13/17 00:06 Monocytes % (Manual) 3 % (0-10) 11/13/17 00:06 Eosinophils % (Manual) 2 % (0-7) 11/13/17 00:06 Platelet Estimate Normal (NORMAL) 11/13/17 00:06 Hypochromasia (manual) Slight 11/13/17 00:06 Anisocytosis (manual) Slight 11/13/17 00:06 Tear Drop Cells Slight 11/13/17 00:06 PT 12.6 Seconds (9.8-13.1) 11/13/17 00:06 INR 1.1 (0.9-1.2) 11/13/17 00:06 APTT 35.3 Seconds (25.6-37.1) 11/13/17 00:06 pO2 47 mm/Hg (30-55) 11/13/17 03:39 VBG pH 7.31 (7.32-7.43) L 11/13/17 03:39 VBG pCO2 32 mmHg (40-60) L 11/13/17 03:39 VBG HCO3 17.4 mmol/L 11/13/17 03:39 VBG Total CO2 17.1 mmol/L (22-28) L 11/13/17 03:39 VBG O2 Sat (Calc) 85.2 % (40-65) H 11/13/17 03:39 VBG Base Excess -9.0 mmol/L (0.0-2.0) L 11/13/17 03:39 VBG Potassium 4.0 mmol/L (3.6-5.2) 11/13/17 03:39 Sodium 136.0 mmol/L (132-148) 04 03:39 Chloride 109.0 mmol/L (98-107) H 11/13/17 03:39 Glucose 247 mg/dL (75-110) H 11/13/17 03:39 Lactate 1.8 mmol/L (0.7-2.1) 04 03:39 FiO2 21.0 % 11/13/17 03:39 Sodium 143 mmol/l (132-148) 11/15/17 06:54 Potassium 3.8 MMOL/L (3.6-5.0) 11/15/17 06:54 Chloride 109 mmol/L (98-107) H 11/15/17 06:54 Carbon Dioxide 20 mmol/L (22-30) L 11/15/17 06:54 Anion Gap 18 (10-20) 11/15/17 06:54 BUN 19 mg/dl (9-20) 11/15/17 06:54 Creatinine 1.4 mg/dl (0.8-1.5) 11/15/17 06:54 Est GFR ( Amer) 60 11/15/17 06:54 Est GFR (Non-Af Amer) 50 11/15/17 06:54 POC Glucose (mg/dL) 191 mg/dL (65-110) H 11/15/17 11:03 Random Glucose 128 mg/dL (75-110) H 11/15/17 06:54 Hemoglobin A1c 8.0 % (4.2-6.5) H 11/14/17 06:25 Calcium 8.4 mg/dL (8.4-10.2) 11/15/17 06:54 Total Bilirubin 1.3 mg/dl (0.2-1.3) 11/13/17 00:06 AST 70 U/L (17-59) H 11/13/17 00:06 ALT 41 U/L (21-72) 11/13/17 00:06 Alkaline Phosphatase 139 U/L (38-126) H 11/13/17 00:06 Troponin I 0.0200 ng/mL (0.00-0.120) 11/13/17 00:06 Total Protein 9.7 G/DL (6.3-8.2) H 11/13/17 00:06 Albumin 4.7 g/dL (3.5-5.0) 11/13/17 00:06 Globulin 5.0 gm/dL (2.2-3.9) H 11/13/17 00:06 Albumin/Globulin Ratio 0.9 (1.0-2.1) L 11/13/17 00:06 Triglycerides 102 mg/DL (0-149) 11/14/17 06:25 Cholesterol 88 mg/dL (0-199) 11/14/17 06:25 LDL Cholesterol Direct 41 mg/dL (0-129) 11/14/17 06:25 HDL Cholesterol 18 MG/DL (30-70) L 11/14/17 06:25 Lipase 72 U/L (23-300) 11/13/17 00:06 Venous Blood Potassium 4.0 mmol/L (3.6-5.2) 11/13/17 03:39 Blood Type O POSITIVE 11/13/17 03:25 Blood Type Confirm O POSITIVE 11/13/17 13:00 Antibody Screen Negative 11/13/17 03:25 BBK History Checked No verified bt 11/13/17 03:25
[2017-11-15 16:42] VITALS: BP 121/74; PULSE 95; TEMP 97.6; O2SAT 98
== END 2017-11-15 15:20 | disposition home or self-care (01) | DRG 195 ==
LOC: H.ER 21:06 → H.ERHOLD 11-13 06:41 → H.TEL 11-13 11:04
PROVIDERS: ADMIT Family Medicine Geriatric Medicine; ATTEND Family Medicine Geriatric Medicine
DX: J18.9 Pneumonia, unspecified organism (principal); D72.828 Other elevated white blood cell count; I89.8 Other specified noninfective disorders of lymphatic vessels and lymph nodes; K21.0 Gastro-esophageal reflux disease with esophagitis; K29.70 Gastritis, unspecified, without bleeding; E11.9 Type 2 diabetes mellitus without complications; R06.6 Hiccough; R19.7 Diarrhea, unspecified; E78.5 Hyperlipidemia, unspecified; I10 Essential (primary) hypertension; E78.00 Pure hypercholesterolemia, unspecified; M10.9 Gout, unspecified; Z79.84 Long term (current) use of oral hypoglycemic drugs

== ENCOUNTER 2017-12-11 07:44 | Day surgery (SDC) | payer MEDICARE ==
[2017-12-11] MEDS ORDERED: Propofol 10 mg/ml Inj (20 ML) ONE (08:20)
[2017-12-11] MEDS ORDERED: Lactated Ringer's 500 ML IV ONE (08:31)
[2017-12-11 09:45] VITALS: RESP 18
[2017-12-11 09:47] VITALS: BP 105/61; PULSE 77; TEMP 98; O2SAT 96
== END 2017-12-11 14:44 | disposition home or self-care (01) ==
LOC: H.ENDO 07:44
PROVIDERS: ATTEND Internal Medicine Gastroenterology
DX: Z86.010 Personal history of colon polyps (principal); G47.33 Obstructive sleep apnea (adult) (pediatric); E11.9 Type 2 diabetes mellitus without complications; E78.5 Hyperlipidemia, unspecified; M10.9 Gout, unspecified; K21.9 Gastro-esophageal reflux disease without esophagitis; I10 Essential (primary) hypertension; D12.5 Benign neoplasm of sigmoid colon; K64.8 Other hemorrhoids; K57.30 Diverticulosis of large intestine without perforation or abscess without bleeding
CPT/HCPCS: 45380; 82948; 88305; J2001; J2704; J7120

== ENCOUNTER 2018-07-13 13:55 | Emergency (ER) | payer MEDICARE ==
[2018-07-13 13:55] VITALS: BMI 38.2
[2018-07-13 14:09] VITALS: BP 170/76; PULSE 89; RESP 18; TEMP 97.3; O2SAT 95
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
== END 2018-07-13 16:05 | disposition home or self-care (01) ==
LOC: H.ER 13:55
DX: M54.5 Low back pain (principal); E11.8 Type 2 diabetes mellitus with unspecified complications